=== PATIENT | male | born 1950 | race Caucasian/White ===

== ENCOUNTER 2016-12-05 10:41 | Outpatient (CLI) | payer OTHER | END 2016-12-05 23:00 | LOC: LAB SRH 10:41 | DX: Z51.81 Encounter for therapeutic drug level monitoring (principal); Z79.01 Long term (current) use of anticoagulants | CPT/HCPCS: 90074; 95059 ==

== ENCOUNTER 2016-12-05 16:40 | Emergency (ER) | payer OTHER ==
--- NOTE | 2016-12-05 21:30 | ED CLINICAL REPORT ---
Clinical Report - Physicians/Mid Levels [facility] [address] [place] [address] 12/05/2016 16:41 Patient: EUGENE BARR Arrived- By private vehicle. Historian- patient. HISTORY OF PRESENT ILLNESS Chief Complaint: Vomiting dark-colored material. This started today and has been moderate. (called his clinic and told them to go straight to the emergency department). Is still present but is improving. It was abrupt in onset and has been intermittent but is not gone now. The patient has not had dark stools, rectal bleeding or pain or hard stools. He has had constipation, nausea and vomiting. No diarrhea or abdominal pain. (reports no abdominal pain. Reports being constipated for the past 2 days. Patient has a history of metastatic cancer. reports no numbness or dizziness or weakness. Patient personal history of GI bleed.). Similar symptoms previously: None. Recent medical care: Not recently seen/assessed. REVIEW OF SYSTEMS No dizziness, fainting episodes, weakness or fever. All systems otherwise negative, except as recorded above. PAST HISTORY See nurses notes. Medications: Lovenox Subcutaneous 80 mg, 2x a day. Acetaminophen Oral 1,000 mg, 2x a day. MiraLax Oral. Pembrolizumab Intravenous, q 3 weeks. Senna Lax Oral. Allergies: No Known Drug Allergy. SOCIAL HISTORY Never smoker. No alcohol use or drug use. No recent travel. Is a local resident. ADDITIONAL NOTES The nursing notes have been reviewed. PHYSICAL EXAM Vital Signs: 12/05/2016 17:05 BP: 107/80. HR: 111. RR: 16. O2 saturation: 100%. Temp: 98 F. Pain level now: 3/10. Blood pressure normal. Oxygen saturation normal. Appearance: Alert. Oriented X3. No acute distress. Eyes: Pupils equal, round and reactive to light. Eyes normal inspection. ENT: Ears normal. Nose normal. Pharynx normal. (Stigmata of cancer With treatment of the oropharynx/neck.). Neck: Normal inspection. Neck supple. No meningeal signs or JVD. CVS: Normal heart rate and rhythm. Heart sounds normal. Pulses normal. Respiratory: No respiratory distress. Breath sounds normal. No rales, rhonchi, wheezes or prolonged expiration. Abdomen: Soft and nontender. Bowel sounds normal. No mass. Back: Normal inspection. Rectal: Heme-positive stool. One slight on the card is noted to have a small area that is heme positive. Other area of the card is negative. Appears to be coming from small area of mucus. Otherwise negative. (POC test reference range: negative). Rectal exam nontender. Stool color normal. Stool not melenic. Skin: Skin warm and dry. Normal skin color. No rash. Normal skin turgor. Extremities: Extremities exhibit normal ROM. No lower extremity edema. Neuro: Disoriented. Motor deficit noted. Sensory deficit noted. LABS, X-RAYS, AND EKG Laboratory Tests: CBC w Diff: (CHRIS: 12/05/2016 18:30) ( MsgRcvd 12/05/2016 18:56) Final results Test Result Flag Units (Reference) WHITE BLOOD COUNT 9.8 K/uL (4.5-11.5) RED BLOOD COUNT 3.71 L M/uL (4.50-5.90) HEMOGLOBIN 10.9 L gm/dL (13.5-17.5) HEMATOCRIT 33.7 L % (41.0-53.0) MEAN CELL VOLUME 91 fL (80-100) MEAN CORPUSCULAR HGB 29 pg (26-34) MEAN CORPUSCULAR HGB CONC 32 g/dL (31-37) RED CELL DISTRIBUTION WIDTH 15.4 H % (11.6-14.8) PLATELET COUNT 387 K/uL (150-400) NEUTROPHIL % 88.7 H % (50-75) LYMPH % 3.6 L % (25-40) MONO % 6.4 % (3-14) EOSINOPHIL % 1.2 % (0-4) BASOPHIL % 0.1 % (0-2) PT with INR: (CHRIS: 12/05/2016 19:00) ( OhgRcvd 12/05/2016 19:14) Final results Test Result Flag Units (Reference) INR 1.6 H (0.8-1.2) Low Intensity Therapy: INR 1.5-2.0 PT range 18.5-23.1Mod.Intensity Therapy: INR 2.0-3.0 PT range 23.1-31.5High Intensity Therapy: INR 2.5-3.5 PT range 27.4-35.5High Intensity Therapy 2: INR 3.0-4.0 PT range 31.5-39.3 APTT 53 H SECONDS (24-34) CMP: (CHRIS: 12/05/2016 19:00) ( MsgRcvd 12/05/2016 19:24) Final results Test Result Flag Units (Reference) GLUCOSE 106 mg/dL (70-110) BUN 18 mg/dL (7-18) CREATININE 0.8 mg/dL (0.6-1.3) Estimated GFR >60 mL/min Estimated GFR- >60 mL/min Note: Persistent reduction over 3 months in eGFR<60 mL/min/1.73 m2 defines CKD. Patients with eGFR values>=60 mL/min/1.73 m2 may also have CKD if evidence ofpersistent proteinuria. Additional information may be foundat www.kidney.org. SODIUM 136 mmol/L (136-145) POTASSIUM 4.0 mmol/L (3.5-5.1) CHLORIDE 98 mmol/L (98-107) CARBON DIOXIDE 31 mmol/L (21-32) CALCIUM 8.8 mg/dL (8.5-10.1) TOTAL PROTEIN 5.4 L g/dL (6.4-8.2) ALBUMIN 1.7 L g/dL (3.3-5.0) BILIRUBIN, TOTAL 0.5 mg/dL (0.0-1.0) ALKALINE PHOSPHATASE 114 U/L (46-116) AST (SGOT) 17 U/L (15-37) ALT (SGPT) 18 U/L (12-78) Type & Rh: (CHRIS: 12/05/2016 19:00) ( MsgRcvd 12/05/2016 19:12) Final results Test Result Flag Units (Reference) PATIENT BLOOD TYPE O Positive . PROGRESS AND PROCEDURES Course of Care: The patient is a pleasant cooperative 66-year-old male with complex past medical history who is known to me on his prior visits to the emergency department fora unrelated problem who presents for evaluation of dark colored vomit. on further questioning, patient has had grape juice. Patient states he does not feel that it was blood in the vomit and most likely foodstuffs however is in the emergency department because he had called his clinic and notified them of what had happened. On examination, patient is resting in bed in no acute distress. Patient reports having brown colored vomit. Patient does not describe them as coffee grounds. Patient will be hydrated for GI bleed. Medications provided. patient with episode of nausea and vomiting 2 days ago. Patient reports having no bowel movements Patient reports being told to get an enema at home. Has not been able to do this. Patient will be evaluated for laboratory studies. Patient has a 1 square of the Hemoccult that is positive. Appears to be emanating from a small area of mucus on the card. Patient does not have any justus heme positive stool. Low clinical suspicion for acute massive GI bleed based on patient's history and examination. Patient's laboratory studies are otherwise unremarkable. Patient is a stable out a patient candidate Recommend patient follow up with primary care doctor and oncology clinic. Do not feel patient needs to be admitted at this time. Vital signs are unremarkable upon discharge. Abdomen continues to be soft and nontender. Disposition: Discharged. Condition: good. CLINICAL IMPRESSION Minor GI bleed. Acute epigastric abdominal pain. 12/05/2016 17:05 BP: 107/80. HR: 111. RR: 16. O2 saturation: 100%. Temp: 98 F. Pain level now: 3/10. Blood pressure normal. Oxygen saturation normal. Constipation INSTRUCTIONS Warnings: GENERAL WARNINGS: Return or contact your physician immediately if your condition worsens or changes unexpectedly, if not improving as expected, or if other problems arise. Specifically return if pain, vomiting, bleeding, breathing difficulty or fever. light headed, week, worsening symptoms or other concerns. Your Current Medications: CONTINUE TAKING THE FOLLOWING MEDICATIONS: Acetaminophen Oral : 1,000 mg 2x a day. Lovenox Subcutaneous : 80 mg 2x a day. MiraLax Oral. Pembrolizumab Intravenous : q 3 weeks. Senna Lax Oral. Prescription Medications: Miralax: take 1 measuring cupful supplied mixed in 8 ounces juice every day as needed for constipation. Dispense twenty-six (26) ounce bottle. No refills. Substitution is permissible. Protonix 20 mg tablets: take 1 tablet orally every 12 hours for 1 week. Dispense fourteen (14). No refill. Substitution is permissible. OTC Medications: Magnesium Citrate (10-oz bottle) (available over the counter). Repeat after 4 hours if needed. (Disp 2 bottles) Colace 100 mg capsules (available over the counter): take 1 capsule orally as needed for constipation. No refill. Substitution is permissible. (disp 30 caps) Follow-up: Return to the emergency department as needed. Follow up with a specialist you oncologist. Reason for referral: contact for follow up instructions. Summary of care provided to patient via paper. Follow up with your doctor in three days. Reason for referral: recheck today's concerns. Summary of care provided to patient via paper. Follow up with doctor. Reason for referral: your oncologist for recheck of today's symptoms. Screening today revealed the patient's blood pressure to be in the normal range. The patient should follow up with a primary care provider for blood pressure management. Understanding of the discharge instructions verbalized by patient. Follow-up with: Alvino Vallecillo MD, Gastroenterology, , [address] [place] [address], [address], [facility] [address] Follow up in one week. Reason for referral: contact if you do not have a GI doctor and your doctor would like you to follow up with on based on today's visit. Summary of care provided to patient via paper. (Electronically signed by Jordan Pham Dr. 12/11/2016 17:43)
--- NOTE | 2016-12-05 21:31 | ED ORDER SUMMARY ---
..... Patient: EUGENE BARR OrderSheet [facility] VisitID: [id number] [place] [address] 66y, M Registration Date/Time: 12/05/2016 ORDER SHEET Weight: 61.2 kg (stated) Allergies: No Known Drug Allergy GENERAL ORDERS: CBC w Diff Urgent (18:12/05/2016 Elizabeth Lee) (18:34 NHouse ER Tech1) CMP Urgent (18:12/05/2016 Elizabeth Lee) (18:34 NHouse ER Tech1) PT with INR Urgent (18:12/05/2016 Elizabeth Lee) (18:34 COouse ER Tech1) PTT Urgent (18:12/05/2016 Elizabeth Lee) (18:34 NHouse ER Tech1) Type & Rh Urgent (18:12/05/2016 Elizabeth Lee) (18:34 NHouse ER Tech1) MEDICATION ORDERS: IV FLUIDS: IV NS : initial bolus 1000 mL (1000 mL/hr), then none - for X1 (NOW) (18:06 12/05/2016 Elizabeth Lee) (Ack 18:11 SRoberts R.N.) (18:41 SRoberts R.N.) Pepcid IV 20 mg/50mL (NOW) (18:12/05/2016 Elizabeth Lee) (Ack 18:11 SRoberts R.N.) (18:43 SRoberts R.N.) Protonix IVP 80mg 80 mg (Mix in NS 20ml over 4min) (18:12/05/2016 Elizabeth Lee) (Ack 18:11 SRoberts R.N.) (18:42 SRoberts R.N.) ORDER SHEET NOTES: [Electronically signed by Rebecca Lujan R.N. (21:47 12/05/2016)] [Electronically signed by Jordan Pham Dr. (17:43 12/11/2016)] [Electronically locked/signed by Rebecca Lujan R.N. (21:47 12/05/2016)]
--- NOTE | 2016-12-05 21:31 | ED NURSING NOTES ---
Clinical Report - Nurses [facility] [address] [place] [address] 12/05/2016 16:41 Patient: EUGENE BARR TRIAGE Triage time 17:07. Acuity: LEVEL 3. Chief Complaint: ABDOMINAL PAIN and VOMITING and VOMITING BLOOD. Alert. No acute distress. SEPSIS SCREEN: Sepsis Screen: negative. Negative (no infection suspected/documented). --17:19 Rebecca Lujan R.N. 17:05 12/05/16. BP: 107/80. HR: 111. RR: 16. O2 saturation: 100% on nasal cannula at 2 liters/minute. Temp: 98 F (axillary). Pain level now: 10. Additional comments: Home 02 . --17:19 Rebecca Lujan R.N. Weight: 61.2 kg stated. Height/Length: 63 inches Per Patient. BMI: 23.9. --17:10 Rebecca Lujan R.N. Medications Acetaminophen Oral 1,000 mg, 2x a day. MiraLax Oral. Pembrolizumab Intravenous, q 3 weeks. Senna Lax Oral. --17:21 Rebecca Lujan R.N. Lovenox Subcutaneous 80 mg, 2x a day. --17:22 Rebecca Lujan R.N. Medication/allergy information source: the patient. --17:19 Rebecca Lujan R.N. Allergies No Known Drug Allergy. --17:21 Rebecca Lujan R.N. History Arrived by private vehicle. Historian: patient. Accompanied by family. Primary physician (chc). Onset. (2 and 3 days ago had some vomiting with blood in it). He has had nausea, vomiting and abdominal pain. The pain is described as located in the RLQ and associated with nausea and vomiting. 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 PAST MEDICAL HX: Immunizations: status is unknown. SOCIAL HX: Smoker- current status unknown. No alcohol use or drug use. FALL RISK ASSESSMENT: Fall risk assessment completed. No fall risk identified. NUTRITIONAL RISK ASSESSMENT: Deficiencies were identified during the nutritional risk assessment. The patient has recently had a 50 percent decrease in intake and chewing difficulty. The patient is presently under care for identified nutritional deficiencies. --17:19 Rebecca Lujan R.N. PROBLEMS: COPD - Chronic Obstructive Pulmonary Disease. Metastatic squamous cell carcinoma. --17:12 Rebecca Lujan R.N. ADDITIONAL SURGERIES: 3 tumors removed from brain. Jaw surgery --bone removed and replaced with bone from lower leg. Lobectomy of lung. --17:12 Rebecca Lujan R.N. Interventions ID band on patient. To room. --17:19 Rebecca Lujan R.N. PHYSICAL ASSESSMENT To room via wheelchair. Patient gowned. GENERAL / NEURO / PSYCH: Alert. Oriented X 4. Appears anxious. HEENT: Mucous membranes are pink. RESPIRATORY: Respirations not labored. CVS: Capillary refill less than 2 seconds. GI / : Abdominal tenderness. SKIN: Skin is warm and dry. --17:19 Rebecca Lujan R.N. NURSING PROGRESS NOTES Two patient identifiers checked. Call light placed in reach. Side rails up x 2. Bed placed in lowest position. Brakes of bed on. Patient ready for evaluation. --17:20 Rebecca Lujan R.N. 18:12/05/2016 Site #1 started via IV in the right antecubital space with an 20g angiocath, with aseptic technique and good blood return; one attempt. Blood drawn: rainbow set. Labeled in the presence of the patient and sent to the lab. Saline lock flushed with saline. --18:41 Rebecca Lujan R.N. 18:12/05/2016 Started bag #1 1000 mL IV Fluids IV NS (Saline); at 1000 mL/hr over 1 hour(s) via site #1 via IV pump. Allergies verified and confirmed 5 rights. IV patency established. IV site checked: no pain, redness, or swelling. IV flushed thoroughly pre- and post-medication administration. --18:41 Rebecca Lujan R.N. 18:12/05/2016 PROTONIX (Pantoprazole Sodium) IVP 80 mg given over 2 minute(s) via site #1. Allergies verified and confirmed 5 rights. IV patency established. IV site checked: no pain, redness, or swelling. IV flushed thoroughly pre- and post-medication administration. IVP given by RN. --18:42 Rebecca Lujan R.N. 18:28 12/05/2016 Started 20 mg of Pepcid IVPB in bag #1 50 mL; at 100 mg/hr over 30 minute(s) via site #1 via IV pump. Allergies verified and confirmed 5 rights. IV patency established. IV site checked: no pain, redness, or swelling. IV flushed thoroughly pre- and post-medication administration. --18:43 Rebecca Lujan R.N. 19:00 12/05/2016 Pepcid IVPB Discontinued: bag #1 infused. Total amount infused: 50 mL. IV patency established. IV site checked: no pain, redness, or swelling. IV flushed thoroughly. --19:20 Rebecca Lujan R.N. 19:00 12/05/2016 IV Fluids IV NS Discontinued: bag #1 infused. Total amount infused: 1000 mL. IV patency established. IV site checked: no pain, redness, or swelling. IV flushed thoroughly. --19:21 Rebecca Lujan R.N. 21:35 12/05/2016 Site #1 removed upon discharge. Catheter intact. Bandaid applied. --21:35 Rebecca Lujan R.N. DISPOSITION / DISCHARGE Condition at departure: improved. No learning barriers present. Discharge instructions provided and reviewed with the patient and spouse. Reviewed medication(s) side effects, precautions, dosing and course information. Prescription(s) given to the patient. Patient and spouse verbalized understanding. Written instructions provided in Frisian. The patient was discharged home and accompanied by spouse. He left the Emergency Department ambulatory and via private vehicle. Spouse driving. Medication list reviewed and validated. --21:46 Rebecca Lujan R.N. 21:37 12/05/16. BP: 116/67. HR: 99. RR: 20. O2 saturation: 100% on nasal cannula at 2 liters/minute. Temp: 98.7 F (axillary). 20:20 12/05/16. BP: 113/69. HR: 96. RR: 18. O2 saturation: 100% on nasal cannula at 2 liters/minute. 19:26 12/05/16. BP: 117/70. HR: 90. RR: 18. O2 saturation: 99% on nasal cannula at 2 liters/minute. 18:30 12/05/16. BP: 116/73. HR: 76. RR: 16. O2 saturation: 100% on nasal cannula at 2 liters/minute. 17:05 12/05/16. BP: 107/80. HR: 111. RR: 16. O2 saturation: 100% on nasal cannula at 2 liters/minute. Temp: 98 F (axillary). Pain level now: 02/08. Additional comments: Home 02 . --21:46 Rebecca Lujan R.N. Locked/Released at 12/05/2016 21:47 by Rebecca Lujan R.N.
--- NOTE | 2016-12-05 21:31 | ED ORDER SUMMARY ---
..... Patient: EUGENE BARR OrderSheet [facility] VisitID: [id number] [place] [address] 66y, M Registration Date/Time: 12/05/2016 ORDER SHEET Weight: 61.2 kg (stated) Allergies: No Known Drug Allergy GENERAL ORDERS: CBC w Diff Urgent (18:12/05/2016 Elizabeth Lee) (18:34 NHouse ER Tech1) CMP Urgent (18:12/05/2016 Elizabeth Lee) (18:34 NHouse ER Tech1) PT with INR Urgent (18:12/05/2016 Elizabeth Lee) (18:34 NVouse ER Tech1) PTT Urgent (18:12/05/2016 Elizabeth Lee) (18:34 NHouse ER Tech1) Type & Rh Urgent (18:12/05/2016 Elizabeth Lee) (18:34 NHouse ER Tech1) MEDICATION ORDERS: IV FLUIDS: IV NS : initial bolus 1000 mL (1000 mL/hr), then none - for X1 (NOW) (18:06 12/05/2016 Elizabeth Lee) (Ack 18:11 SRoberts R.N.) (18:41 SRoberts R.N.) Pepcid IV 20 mg/50mL (NOW) (18:12/05/2016 Elizabeth Lee) (Ack 18:11 SRoberts R.N.) (18:43 SRoberts R.N.) Protonix IVP 80mg 80 mg (Mix in NS 20ml over 4min) (18:12/05/2016 Elizabeth Lee) (Ack 18:11 SRoberts R.N.) (18:42 SRoberts R.N.) ORDER SHEET NOTES: [Electronically signed by Rebecca Lujan R.N. (21:47 12/05/2016)] [Electronically signed by Jordan Pham Dr. (17:43 12/11/2016)] [Electronically locked/signed by Rebecca Lujan R.N. (21:47 12/05/2016)]
--- NOTE | 2016-12-11 17:43 | ED MED RECONCILIATION SUMMARY ---
Patient: EUGENE BARR Medication Reconciliation Report [facility] VisitID: [id number] [place] [address] 66y, M Registration Date/Time: 12/05/2016 Weight: 61.2 kg Height/Length: 63 in. BMI: 23.9 ALLERGIES: No Known Drug Allergy The patient's Home Medications are listed below: CONTINUE TAKING THE FOLLOWING MEDICATIONS: Acetaminophen Oral 1,000 mg, 2x a day Lovenox Subcutaneous 80 mg, 2x a day MiraLax Oral Pembrolizumab Intravenous, q 3 weeks Senna Lax Oral The source(s) of the original Home Medication information: patient The following Medications were given to the patient in the Emergency Department: IV NS IV Fluids bolus 0, then 1000 mL/hr, administered: 12/05/2016 6:26:00 PM PROTONIX [IVP] IVP 80 mg, administered: 12/05/2016 6:26:00 PM Pepcid [IVPB] IVPB bolus 0, then 20 mg 100 mg/hr, administered: 12/05/2016 6:28:00 PM The following Medications were prescribed to the patient: Magnesium Citrate (10-oz bottle) (available over the counter). Repeat after 4 hours if needed.(Disp 2 bottles) -- Jordan Pham Dr. Miralax: take 1 measuring cupful supplied mixed in 8 ounces juice every day as needed for constipation. Dispense twenty-six (26) ounce bottle. No refills. Substitution is permissible. -- Jordan Pham Dr. Colace 100 mg capsules (available over the counter): take 1 capsule orally as needed for constipation. No refill. Substitution is permissible.(disp 30 caps) -- Jordan Pham Dr. Protonix 20 mg tablets: take 1 tablet orally every 12 hours for 1 week. Dispense fourteen (14). No refill. Substitution is permissible. -- Jordan Pham Dr.
--- NOTE | 2016-12-11 17:43 | ED MED RECONCILIATION SUMMARY ---
Patient: EUGENE BARR Medication Reconciliation Report [facility] VisitID: [id number] [place] [address] 66y, M Registration Date/Time: 12/05/2016 Weight: 61.2 kg Height/Length: 63 in. BMI: 23.9 ALLERGIES: No Known Drug Allergy The patient's Home Medications are listed below: CONTINUE TAKING THE FOLLOWING MEDICATIONS: Acetaminophen Oral 1,000 mg, 2x a day Lovenox Subcutaneous 80 mg, 2x a day MiraLax Oral Pembrolizumab Intravenous, q 3 weeks Senna Lax Oral The source(s) of the original Home Medication information: patient The following Medications were given to the patient in the Emergency Department: IV NS IV Fluids bolus 0, then 1000 mL/hr, administered: 12/05/2016 6:26:00 PM PROTONIX [IVP] IVP 80 mg, administered: 12/05/2016 6:26:00 PM Pepcid [IVPB] IVPB bolus 0, then 20 mg 100 mg/hr, administered: 12/05/2016 6:28:00 PM The following Medications were prescribed to the patient: Magnesium Citrate (10-oz bottle) (available over the counter). Repeat after 4 hours if needed.(Disp 2 bottles) -- Jordan Pham Dr. Miralax: take 1 measuring cupful supplied mixed in 8 ounces juice every day as needed for constipation. Dispense twenty-six (26) ounce bottle. No refills. Substitution is permissible. -- Jordan Pham Dr. Colace 100 mg capsules (available over the counter): take 1 capsule orally as needed for constipation. No refill. Substitution is permissible.(disp 30 caps) -- Jordan Pham Dr. Protonix 20 mg tablets: take 1 tablet orally every 12 hours for 1 week. Dispense fourteen (14). No refill. Substitution is permissible. -- Jordan Pham Dr.
--- NOTE | 2016-12-11 17:43 | ED MAR SUMMARY ---
..... Medication Administration Record [facility] [address] [place] [address] Patient: EUGENE BARR Visit ID: [id number] 66y, M Weight: 61.2 kg Height/Length: 63 in BMI: 23.9 ALLERGIES: No Known Drug Allergy Start 18:26 12/05/2016 Rebecca Lujan R.N., Stop 19:00 12/05/2016 Rebecca Lujan R.N. Medication Administered: IV NS (SALINE), Dose: IV Fluids over 1 hour(s), Rate: 1000 mL/hr, Dispensed: 1000 mL bag, Site: #1 right AC. Medication Ordered: IV NS : initial bolus 1000 mL (1000 mL/hr), then none - for X1 (NOW). Given 18:26 12/05/2016 Rebecca Lujan R.N. Medication Administered: PROTONIX [IVP] (PANTOPRAZOLE SODIUM), Dose: 80 mg IVP over 2 minute(s), Site: #1 right AC. Medication Ordered: Protonix IVP 80mg 80 mg (Mix in NS 20ml over 4min). Start 18:28 12/05/2016 Rebecca Lujan R.N., Stop 19:00 12/05/2016 Rebecca Lujan R.N. Medication Administered: PEPCID [IVPB], Dose: 20 mg IVPB over 30 minute(s), Rate: 100 mg/hr, Dispensed: 50 mL bag, Site: #1 right AC. Medication Ordered: Pepcid IV 20 mg/50mL (NOW).
--- NOTE | 2016-12-11 17:43 | ED MAR SUMMARY ---
..... Medication Administration Record [facility] [address] [place] [address] Patient: EUGENE BARR Visit ID: [id number] 66y, M Weight: 61.2 kg Height/Length: 63 in BMI: 23.9 ALLERGIES: No Known Drug Allergy Start 18:26 12/05/2016 Rebecca Lujan R.N., Stop 19:00 12/05/2016 Rebecca Lujan R.N. Medication Administered: IV NS (SALINE), Dose: IV Fluids over 1 hour(s), Rate: 1000 mL/hr, Dispensed: 1000 mL bag, Site: #1 right AC. Medication Ordered: IV NS : initial bolus 1000 mL (1000 mL/hr), then none - for X1 (NOW). Given 18:26 12/05/2016 Rebecca Lujan R.N. Medication Administered: PROTONIX [IVP] (PANTOPRAZOLE SODIUM), Dose: 80 mg IVP over 2 minute(s), Site: #1 right AC. Medication Ordered: Protonix IVP 80mg 80 mg (Mix in NS 20ml over 4min). Start 18:28 12/05/2016 Rebecca Lujan R.N., Stop 19:00 12/05/2016 Rebecca Lujan R.N. Medication Administered: PEPCID [IVPB], Dose: 20 mg IVPB over 30 minute(s), Rate: 100 mg/hr, Dispensed: 50 mL bag, Site: #1 right AC. Medication Ordered: Pepcid IV 20 mg/50mL (NOW).
--- NOTE | 2016-12-11 17:43 | ED DISCHARGE INSTRUCTIONS ---
Patient: EUGENE BARR General Instructions [facility] VisitID: [id number] [place] [address] 66y, M Registration Date/Time: 12/05/2016 Minor GI bleed. Acute epigastric abdominal pain. 12/05/2016 17:05 BP: 107/80. HR: 111. RR: 16. O2 saturation: 100%. Temp: 98 F. Pain level now: 10. Blood pressure normal. Oxygen saturation normal. Constipation INSTRUCTIONS Warnings: GENERAL WARNINGS: Return or contact your physician immediately if your condition worsens or changes unexpectedly, if not improving as expected, or if other problems arise. Specifically return if pain, vomiting, bleeding, breathing difficulty or fever. light headed, week, worsening symptoms or other concerns. Your Current Medications: CONTINUE TAKING THE FOLLOWING MEDICATIONS: Acetaminophen Oral : 1,000 mg 2x a day. Lovenox Subcutaneous : 80 mg 2x a day. MiraLax Oral. Pembrolizumab Intravenous : q 3 weeks. Senna Lax Oral. Prescription Medications: Miralax: take 1 measuring cupful supplied mixed in 8 ounces juice every day as needed for constipation. Dispense twenty-six (26) ounce bottle. No refills. Substitution is permissible. Protonix 20 mg tablets: take 1 tablet orally every 12 hours for 1 week. Dispense fourteen (14). No refill. Substitution is permissible. OTC Medications: Magnesium Citrate (10-oz bottle) (available over the counter). Repeat after 4 hours if needed. (Disp 2 bottles) Colace 100 mg capsules (available over the counter): take 1 capsule orally as needed for constipation. No refill. Substitution is permissible. (disp 30 caps) Follow-up: Return to the emergency department as needed. Follow up with a specialist you oncologist. Reason for referral: contact for follow up instructions. Summary of care provided to patient via paper. Follow up with your doctor in three days. Reason for referral: recheck today's concerns. Summary of care provided to patient via paper. Follow up with doctor. Reason for referral: your oncologist for recheck of today's symptoms. Screening today revealed the patient's blood pressure to be in the normal range. The patient should follow up with a primary care provider for blood pressure management. Understanding of the discharge instructions verbalized by patient. Follow-up with: Alvino Vallecillo MD, Gastroenterology, , [address] [place] [address], [address], [place], [id number] Follow up in one week. Reason for referral: contact if you do not have a GI doctor and your doctor would like you to follow up with on based on today's visit. Summary of care provided to patient via paper. ADDITIONAL INFORMATION GI Bleeding (Upper), Stable There are signs that you have bled from your upper intestinal tract (esophagus, stomach or upper intestine). This may be due to: Repeated vomiting which may cause a small tear in the lining of the esophagus, An ulcer in the stomach or duodenum (upper intestine) Severe gastritis (from use of alcohol, aspirin or anti-inflammatory drugs) Esophageal varices (enlarged veins in the esophagus) may also cause bleeding like this. Your exam today showed that you have not lost a large amount of blood and your condition is stable. Bleeding from the upper GI tract causes the stool to turn black. Home Care: 1) If your bleeding is due to an ulcer or gastritis, an acid-blocking medicine will help. Unless an acid juliette was prescribed (or if you cannot afford one that was prescribed), you may use [id number] drugs such as Pepcid AC (famotidine), Tagamet (cimetidine) or Zantac (ranitidine). These begin to work within a few hours. Prilosec OTC (omeprazole) is a new type of acid juliette which may be more effective. It takes up to four days for its full effect. You may get additional short-term relief by taking antacids (Mylanta or Maalox). It should be taken one hour after meals and at bedtime. Do not take Tagamet (cimetidine), Zantac (ranitidine) or Carafate (sucralfate) within one hour of an antacid. 2) Avoid factors which increase stomach acid. These include cigarettes, caffeine (coffee, tom, teas) and stress. 3) Avoid substances that irritate your stomach. These include aspirin and anti-inflammatory drugs (such as ibuprofen, Advil, Motrin, naproxen, Aleve, Naprosyn), alcohol and spicy foods. Prednisone and related prescription drugs can cause an ulcer. Discuss with your doctor if you are taking these. 4) Take any prescribed medicine as directed to promote healing. 5) If alcohol is a possible cause of your GI bleeding, it is urgent that you talk with your doctor about ways to help you quit. Follow Up with your doctor as advised. Get Prompt Medical Attention if any of the following occur: -- Stomach pain worsens -- Pain appears, worsens or spreads to the neck, back, shoulder or arm -- You vomit blood (red or black color) -- You feel weak or dizzy, or you faint -- You have fever or abdominal swelling -- Red blood in the stool Abdominal Pain,Uncertain Cause [Male] Based on your visit today, the exact cause of your abdominalpain is not clear. Your exam and tests do not indicate a dangerous cause at this time. However, the signs of a serious problem may take more time to appear. Although your evaluation was reassuring today, sometimes early in the course of many conditions, exam and lab tests can appear normal. Therefore, it is important for you to watch for any new symptoms or worsening of your condition. Causes It may not be obvious what caused your symptoms. Pay attention to things that do seem to make your symptoms worse or better and discuss this with your doctor when you follow up. Diagnosis The evaluation of abdominal pain in the emergency department may onlyrequire an exam by the doctor or it may include blood, urine or imaging studies, depending on many factors. Sometimes exams and tests can identify a cause but in many cases, a clear cause is not found. Further testing at follow up visits may help to suggest a clear diagnosis. Home Care Rest as much as possible until your next exam. Try to avoid any medications (unless otherwise directed by your doctor), foods, activities, or other factors that you may have contributed to your symptoms. Try to eat foods that you know that you have tolerated well in the past. Certain diets may be recommended for some conditions that cause abdominal pain. However, since the cause of your symptoms may not be clear, discuss your diet more with your primary care provider or specialist for further recommendations. Eating several small meals per day as opposed to 2 or 3 larger meals may help. Monitor closely for anything that may make your symptoms worse or better. Pay close attention to symptoms below that may indicate worsening of your condition. Follow Up and Precautions See your doctoras instructed or sooneror if your symptoms are not improving.In some cases, you may need more testing. When to Seek Medical Attention Contact your doctor or see medical attention ifany of the following occur: Pain is becoming worse You are unable to take your medications due to excessive vomiting Swelling of the abdomen Fever of 100.4F (38C) or higher, or as directed by your health care provider Blood in vomit or bowel movements (dark red or black color) Jaundice (yellow color of eyes and skin) New onset of weakness, dizziness or fainting New onset of chest, arm, back, neck or jaw pain Constipation (Adult) Constipation is bowel movements that are less frequent than usual. Stools often become very hard and difficult to pass. This may lead to abdominal pain and bloating. It may also cause painful bowel movements. Constipation may be due to a diet thats low in fiber. Some medications, especially pain medications, can also cause it. Constipation may be treated with enemas, suppositories, laxatives or stool softeners. Your doctor will advise you which will work best for you. Follow the advice below to help avoid this problem in the future. Home Care Medication: Take any medicines as directed. Some laxatives are safe only for occasional use. Others can be taken on a regular basis. Talk to your doctor or pharmacist if you have questions. General Care: Prescription pain medications can cause constipation. If you are prescribed pain medications, ask the doctor whether you should also take a stool softener. A diet high in fiber with plenty of fluids helps to maintain regular, soft bowel movements. The following foods are good sources of dietary fiber: Cereals and breads: Whole grain cereal with bran, oatmeal, rolled oats, whole grain breads Fruits: All fruits (fresh and dried), raisins, prunes, apricots, berries, figs Vegetables: Any fresh vegetables, especially peas, broccoli, brussels sprouts, winter squash, green beans, cauliflower, giles beans, carrots Other: Popcorn, brown rice Drink plenty of water when you increase the amount of fiber you eat. Follow Up with your doctor or return to this facility if symptoms do not improve in the next few days. You may require further tests or a referral to a specialist. Get Prompt Medical Attention if any of the following occur: Fever over 100.4F (38C) Failure to resume normal bowel movements Increasing abdominal or back pain Nausea or vomiting Abdominal swelling Blood in the stool Weakness, dizziness or fainting Unexpected vaginal bleeding Pantoprazole Sodium Gastro-resistant tablet What is this medicine? PANTOPRAZOLE (bermeo TOE pra zole) prevents the production of acid in the stomach. It is used to treat gastroesophageal reflux disease (GERD), inflammation of the esophagus, and Mariana-Duenas syndrome. How should I use this medicine? Take this medicine by mouth. Swallow the tablets whole with a drink of water. Follow the directions on the prescription label. Do not crush, break, or chew. Take your medicine at regular intervals. Do not take your medicine more often than directed. Talk to your photographic colorist regarding the use of this medicine in children. While this drug may be prescribed for children as young as 5 years for selected conditions, precautions do apply. What side effects may I notice from receiving this medicine? Side effects that you should report to your doctor or health ocular care technician as soon as possible: allergic reactions like skin rash, itching or hives, swelling of the face, lips, or tongue bone, muscle or joint pain breathing problems chest pain or chest tightness dark yellow or brown urine dizziness fast, irregular heartbeat feeling faint or lightheaded fever or sore throat muscle spasm palpitations redness, blistering, peeling or loosening of the skin, including inside the mouth seizures tremors unusual bleeding or bruising unusually weak or tired yellowing of the eyes or skin Side effects that usually do not require medical attention (Report these to your doctor or health ocular care technician if they continue or are bothersome.): constipation diarrhea dry mouth headache nausea What may interact with this medicine? Do not take this medicine with any of the following medications: atazanavir nelfinavir This medicine may also interact with the following medications: ampicillin delavirdine digoxin diuretics iron salts medicines for fungal infections like ketoconazole, itraconazole and voriconazole warfarin What if I miss a dose? If you miss a dose, take it as soon as you can. If it is almost time for your next dose, take only that dose. Do not take double or extra doses. Where should I keep my medicine? Keep out of the reach of children. Store at room temperature between 15 and 30 degrees C (59 and 86 degrees F). Protect from light and moisture. Throw away any unused medicine after the expiration date. What should I tell my health care provider before I take this medicine? They need to know if you have any of these conditions: liver disease low levels of magnesium in the blood an unusual or allergic reaction to omeprazole, lansoprazole, pantoprazole, rabeprazole, other medicines, foods, dyes, or preservatives or trying to get breast-feeding What should I watch for while using this medicine? It can take several days before your stomach pain gets better. Check with your doctor or health ocular care technician if your condition does not start to get better, or if it gets worse. You may need blood work done while you are taking this medicine. Docusate Sodium Oral tablet What is this medicine? DOCUSATE (doc CUE sayt) is stool softener. It helps prevent constipation and straining or discomfort associated with hard or dry stools. How should I use this medicine? Take this medicine by mouth with a glass of water. Follow the directions on the label. Take your doses at regular intervals. Do not take your medicine more often than directed. Talk to your photographic colorist regarding the use of this medicine in children. While this medicine may be prescribed for children as young as 2 years for selected conditions, precautions do apply. What side effects may I notice from receiving this medicine? Side effects that you should report to your doctor or health ocular care technician as soon as possible: allergic reactions like skin rash, itching or hives, swelling of the face, lips, or tongue Side effects that usually do not require medical attention (report to your doctor or health ocular care technician if they continue or are bothersome): diarrhea stomach cramps throat irritation What may interact with this medicine? mineral oil What if I miss a dose? If you miss a dose, take it as soon as you can. If it is almost time for your next dose, take only that dose. Do not take double or extra doses. Where should I keep my medicine? Keep out of the reach of children. Store at room temperature between 15 and 30 degrees C (59 and 86 degrees F). Throw away any unused medicine after the expiration date. What should I tell my health care provider before I take this medicine? They need to know if you have any of these conditions: nausea or vomiting severe constipation stomach pain sudden change in bowel habit lasting more than 2 weeks an unusual or allergic reaction to docusate, other medicines, foods, dyes, or preservatives or trying to get breast-feeding What should I watch for while using this medicine? Do not use for more than one week without advice from your doctor or health ocular care technician. If your constipation returns, check with your doctor or health ocular care technician. Drink plenty of water while taking this medicine. Drinking water helps decrease constipation. Stop using this medicine and contact your doctor or health ocular care technician if you experience any rectal bleeding or do not have a bowel movement after use. These could be signs of a more serious condition. You have been given the following additional information: GI Bleed, Upper (Stable) Abdominal Pain, Unknown Cause, (Male) Constipation (Adult) Pantoprazole Sodium Gastro-resistant tablet Docusate Sodium Oral tablet (Electronically signed by Jordan Pham Dr. 12/11/2016 17:43)
--- NOTE | 2016-12-11 17:43 | ED DISCHARGE INSTRUCTIONS ---
Patient: EUGENE BARR General Instructions [facility] VisitID: [id number] [place] [address] 66y, M Registration Date/Time: 12/05/2016 Minor GI bleed. Acute epigastric abdominal pain. 12/05/2016 17:05 BP: 107/80. HR: 111. RR: 16. O2 saturation: 100%. Temp: 98 F. Pain level now: 10. Blood pressure normal. Oxygen saturation normal. Constipation INSTRUCTIONS Warnings: GENERAL WARNINGS: Return or contact your physician immediately if your condition worsens or changes unexpectedly, if not improving as expected, or if other problems arise. Specifically return if pain, vomiting, bleeding, breathing difficulty or fever. light headed, week, worsening symptoms or other concerns. Your Current Medications: CONTINUE TAKING THE FOLLOWING MEDICATIONS: Acetaminophen Oral : 1,000 mg 2x a day. Lovenox Subcutaneous : 80 mg 2x a day. MiraLax Oral. Pembrolizumab Intravenous : q 3 weeks. Senna Lax Oral. Prescription Medications: Miralax: take 1 measuring cupful supplied mixed in 8 ounces juice every day as needed for constipation. Dispense twenty-six (26) ounce bottle. No refills. Substitution is permissible. Protonix 20 mg tablets: take 1 tablet orally every 12 hours for 1 week. Dispense fourteen (14). No refill. Substitution is permissible. OTC Medications: Magnesium Citrate (10-oz bottle) (available over the counter). Repeat after 4 hours if needed. (Disp 2 bottles) Colace 100 mg capsules (available over the counter): take 1 capsule orally as needed for constipation. No refill. Substitution is permissible. (disp 30 caps) Follow-up: Return to the emergency department as needed. Follow up with a specialist you oncologist. Reason for referral: contact for follow up instructions. Summary of care provided to patient via paper. Follow up with your doctor in three days. Reason for referral: recheck today's concerns. Summary of care provided to patient via paper. Follow up with doctor. Reason for referral: your oncologist for recheck of today's symptoms. Screening today revealed the patient's blood pressure to be in the normal range. The patient should follow up with a primary care provider for blood pressure management. Understanding of the discharge instructions verbalized by patient. Follow-up with: Alvino Vallecillo MD, Gastroenterology, , [address] [place] [address], [address], [place], [id number] Follow up in one week. Reason for referral: contact if you do not have a GI doctor and your doctor would like you to follow up with on based on today's visit. Summary of care provided to patient via paper. ADDITIONAL INFORMATION GI Bleeding (Upper), Stable There are signs that you have bled from your upper intestinal tract (esophagus, stomach or upper intestine). This may be due to: Repeated vomiting which may cause a small tear in the lining of the esophagus, An ulcer in the stomach or duodenum (upper intestine) Severe gastritis (from use of alcohol, aspirin or anti-inflammatory drugs) Esophageal varices (enlarged veins in the esophagus) may also cause bleeding like this. Your exam today showed that you have not lost a large amount of blood and your condition is stable. Bleeding from the upper GI tract causes the stool to turn black. Home Care: 1) If your bleeding is due to an ulcer or gastritis, an acid-blocking medicine will help. Unless an acid juliette was prescribed (or if you cannot afford one that was prescribed), you may use [id number] drugs such as Pepcid AC (famotidine), Tagamet (cimetidine) or Zantac (ranitidine). These begin to work within a few hours. Prilosec OTC (omeprazole) is a new type of acid juliette which may be more effective. It takes up to four days for its full effect. You may get additional short-term relief by taking antacids (Mylanta or Maalox). It should be taken one hour after meals and at bedtime. Do not take Tagamet (cimetidine), Zantac (ranitidine) or Carafate (sucralfate) within one hour of an antacid. 2) Avoid factors which increase stomach acid. These include cigarettes, caffeine (coffee, tom, teas) and stress. 3) Avoid substances that irritate your stomach. These include aspirin and anti-inflammatory drugs (such as ibuprofen, Advil, Motrin, naproxen, Aleve, Naprosyn), alcohol and spicy foods. Prednisone and related prescription drugs can cause an ulcer. Discuss with your doctor if you are taking these. 4) Take any prescribed medicine as directed to promote healing. 5) If alcohol is a possible cause of your GI bleeding, it is urgent that you talk with your doctor about ways to help you quit. Follow Up with your doctor as advised. Get Prompt Medical Attention if any of the following occur: -- Stomach pain worsens -- Pain appears, worsens or spreads to the neck, back, shoulder or arm -- You vomit blood (red or black color) -- You feel weak or dizzy, or you faint -- You have fever or abdominal swelling -- Red blood in the stool Abdominal Pain,Uncertain Cause [Male] Based on your visit today, the exact cause of your abdominalpain is not clear. Your exam and tests do not indicate a dangerous cause at this time. However, the signs of a serious problem may take more time to appear. Although your evaluation was reassuring today, sometimes early in the course of many conditions, exam and lab tests can appear normal. Therefore, it is important for you to watch for any new symptoms or worsening of your condition. Causes It may not be obvious what caused your symptoms. Pay attention to things that do seem to make your symptoms worse or better and discuss this with your doctor when you follow up. Diagnosis The evaluation of abdominal pain in the emergency department may onlyrequire an exam by the doctor or it may include blood, urine or imaging studies, depending on many factors. Sometimes exams and tests can identify a cause but in many cases, a clear cause is not found. Further testing at follow up visits may help to suggest a clear diagnosis. Home Care Rest as much as possible until your next exam. Try to avoid any medications (unless otherwise directed by your doctor), foods, activities, or other factors that you may have contributed to your symptoms. Try to eat foods that you know that you have tolerated well in the past. Certain diets may be recommended for some conditions that cause abdominal pain. However, since the cause of your symptoms may not be clear, discuss your diet more with your primary care provider or specialist for further recommendations. Eating several small meals per day as opposed to 2 or 3 larger meals may help. Monitor closely for anything that may make your symptoms worse or better. Pay close attention to symptoms below that may indicate worsening of your condition. Follow Up and Precautions See your doctoras instructed or sooneror if your symptoms are not improving.In some cases, you may need more testing. When to Seek Medical Attention Contact your doctor or see medical attention ifany of the following occur: Pain is becoming worse You are unable to take your medications due to excessive vomiting Swelling of the abdomen Fever of 100.4F (38C) or higher, or as directed by your health care provider Blood in vomit or bowel movements (dark red or black color) Jaundice (yellow color of eyes and skin) New onset of weakness, dizziness or fainting New onset of chest, arm, back, neck or jaw pain Constipation (Adult) Constipation is bowel movements that are less frequent than usual. Stools often become very hard and difficult to pass. This may lead to abdominal pain and bloating. It may also cause painful bowel movements. Constipation may be due to a diet thats low in fiber. Some medications, especially pain medications, can also cause it. Constipation may be treated with enemas, suppositories, laxatives or stool softeners. Your doctor will advise you which will work best for you. Follow the advice below to help avoid this problem in the future. Home Care Medication: Take any medicines as directed. Some laxatives are safe only for occasional use. Others can be taken on a regular basis. Talk to your doctor or pharmacist if you have questions. General Care: Prescription pain medications can cause constipation. If you are prescribed pain medications, ask the doctor whether you should also take a stool softener. A diet high in fiber with plenty of fluids helps to maintain regular, soft bowel movements. The following foods are good sources of dietary fiber: Cereals and breads: Whole grain cereal with bran, oatmeal, rolled oats, whole grain breads Fruits: All fruits (fresh and dried), raisins, prunes, apricots, berries, figs Vegetables: Any fresh vegetables, especially peas, broccoli, brussels sprouts, winter squash, green beans, cauliflower, giles beans, carrots Other: Popcorn, brown rice Drink plenty of water when you increase the amount of fiber you eat. Follow Up with your doctor or return to this facility if symptoms do not improve in the next few days. You may require further tests or a referral to a specialist. Get Prompt Medical Attention if any of the following occur: Fever over 100.4F (38C) Failure to resume normal bowel movements Increasing abdominal or back pain Nausea or vomiting Abdominal swelling Blood in the stool Weakness, dizziness or fainting Unexpected vaginal bleeding Pantoprazole Sodium Gastro-resistant tablet What is this medicine? PANTOPRAZOLE (bermeo TOE pra zole) prevents the production of acid in the stomach. It is used to treat gastroesophageal reflux disease (GERD), inflammation of the esophagus, and Mariana-Duenas syndrome. How should I use this medicine? Take this medicine by mouth. Swallow the tablets whole with a drink of water. Follow the directions on the prescription label. Do not crush, break, or chew. Take your medicine at regular intervals. Do not take your medicine more often than directed. Talk to your kitchen and counter worker regarding the use of this medicine in children. While this drug may be prescribed for children as young as 5 years for selected conditions, precautions do apply. What side effects may I notice from receiving this medicine? Side effects that you should report to your doctor or health career placement specialist as soon as possible: allergic reactions like skin rash, itching or hives, swelling of the face, lips, or tongue bone, muscle or joint pain breathing problems chest pain or chest tightness dark yellow or brown urine dizziness fast, irregular heartbeat feeling faint or lightheaded fever or sore throat muscle spasm palpitations redness, blistering, peeling or loosening of the skin, including inside the mouth seizures tremors unusual bleeding or bruising unusually weak or tired yellowing of the eyes or skin Side effects that usually do not require medical attention (Report these to your doctor or health career placement specialist if they continue or are bothersome.): constipation diarrhea dry mouth headache nausea What may interact with this medicine? Do not take this medicine with any of the following medications: atazanavir nelfinavir This medicine may also interact with the following medications: ampicillin delavirdine digoxin diuretics iron salts medicines for fungal infections like ketoconazole, itraconazole and voriconazole warfarin What if I miss a dose? If you miss a dose, take it as soon as you can. If it is almost time for your next dose, take only that dose. Do not take double or extra doses. Where should I keep my medicine? Keep out of the reach of children. Store at room temperature between 15 and 30 degrees C (59 and 86 degrees F). Protect from light and moisture. Throw away any unused medicine after the expiration date. What should I tell my health care provider before I take this medicine? They need to know if you have any of these conditions: liver disease low levels of magnesium in the blood an unusual or allergic reaction to omeprazole, lansoprazole, pantoprazole, rabeprazole, other medicines, foods, dyes, or preservatives or trying to get breast-feeding What should I watch for while using this medicine? It can take several days before your stomach pain gets better. Check with your doctor or health career placement specialist if your condition does not start to get better, or if it gets worse. You may need blood work done while you are taking this medicine. Docusate Sodium Oral tablet What is this medicine? DOCUSATE (doc CUE sayt) is stool softener. It helps prevent constipation and straining or discomfort associated with hard or dry stools. How should I use this medicine? Take this medicine by mouth with a glass of water. Follow the directions on the label. Take your doses at regular intervals. Do not take your medicine more often than directed. Talk to your kitchen and counter worker regarding the use of this medicine in children. While this medicine may be prescribed for children as young as 2 years for selected conditions, precautions do apply. What side effects may I notice from receiving this medicine? Side effects that you should report to your doctor or health career placement specialist as soon as possible: allergic reactions like skin rash, itching or hives, swelling of the face, lips, or tongue Side effects that usually do not require medical attention (report to your doctor or health career placement specialist if they continue or are bothersome): diarrhea stomach cramps throat irritation What may interact with this medicine? mineral oil What if I miss a dose? If you miss a dose, take it as soon as you can. If it is almost time for your next dose, take only that dose. Do not take double or extra doses. Where should I keep my medicine? Keep out of the reach of children. Store at room temperature between 15 and 30 degrees C (59 and 86 degrees F). Throw away any unused medicine after the expiration date. What should I tell my health care provider before I take this medicine? They need to know if you have any of these conditions: nausea or vomiting severe constipation stomach pain sudden change in bowel habit lasting more than 2 weeks an unusual or allergic reaction to docusate, other medicines, foods, dyes, or preservatives or trying to get breast-feeding What should I watch for while using this medicine? Do not use for more than one week without advice from your doctor or health career placement specialist. If your constipation returns, check with your doctor or health career placement specialist. Drink plenty of water while taking this medicine. Drinking water helps decrease constipation. Stop using this medicine and contact your doctor or health career placement specialist if you experience any rectal bleeding or do not have a bowel movement after use. These could be signs of a more serious condition. You have been given the following additional information: GI Bleed, Upper (Stable) Abdominal Pain, Unknown Cause, (Male) Constipation (Adult) Pantoprazole Sodium Gastro-resistant tablet Docusate Sodium Oral tablet (Electronically signed by Jordan Pham Dr. 12/11/2016 17:43)
== END 2016-12-05 21:45 | disposition home or self-care (01) ==
LOC: ED SRH 16:40
DX: K92.2 Gastrointestinal hemorrhage, unspecified (principal); K59.00 Constipation, unspecified; R10.13 Epigastric pain; J44.9 Chronic obstructive pulmonary disease, unspecified; Z79.01 Long term (current) use of anticoagulants
CPT/HCPCS: 90001; 90074; 90100; 90155; 94001; 94060; 95059

== ENCOUNTER 2016-12-14 10:19 | Outpatient (CLI) | payer OTHER | END 2016-12-14 23:00 | LOC: LAB SRH 10:19 | DX: Z79.01 Long term (current) use of anticoagulants (principal) | CPT/HCPCS: 90074; 95059 ==

== ENCOUNTER 2017-01-03 09:25 | Outpatient (CLI) | payer OTHER | END 2017-01-03 23:00 | LOC: LAB SRH 09:25 | DX: Z79.01 Long term (current) use of anticoagulants (principal) | CPT/HCPCS: 90074; 95059 ==

== ENCOUNTER 2017-01-14 10:13 | Outpatient (CLI) | payer OTHER ==
[2017-01-14] MEDS ORDERED: ACETAMINOPHEN500 MG PO (20:24)
[2017-01-14] MEDS ORDERED: MIRALAX EQUIVAL17 GM PO (20:25)
[2017-01-14] MEDS ORDERED: IBUPROFEN600 MG PO (20:25)
[2017-01-14] MEDS ORDERED: LOVENOX80 MG/0.8 SC (20:25)
[2017-01-14] MEDS ORDERED: KEYTRUDA100 MG/4 M IV (20:26)
[2017-01-14] MEDS ORDERED: SENOKOT8.6 MG PO (20:26)
== END 2017-01-14 23:00 ==
LOC: LAB SRH 10:13
DX: Z79.01 Long term (current) use of anticoagulants (principal)
CPT/HCPCS: 90074; 95059

== ENCOUNTER 2017-01-14 15:27 | Observation (INO) | payer OTHER ==
[2017-01-14] VITALS (7 sets, daily range): BP systolic 84–98; BP diastolic 39–54
[~2017-01-14] VITALS: Ht 172.7 cm; Wt 67.0 kg
--- NOTE | 2017-01-14 16:20 | DIAGNOSTIC IMAGING REPORT ---
PROCEDURE: XR CHEST 1 VIEW INDICATION: SHORTNESS OF BREATH TECHNIQUE: Portable AP view 03:51 p.m. COMPARISON: Chest x-ray and chest CT dated 11/02/2016 FINDINGS: Multiple enlarging metastatic nodules throughout both lungs. New right lower lobe infiltrate. Decrease in the hilar mass and mediastinal shift. IMPRESSION: 1. Right lower lobe infiltrate. 2. Multiple enlarging lung mets
--- NOTE | 2017-01-14 16:33 | ED NURSING NOTES ---
Clinical Report - Nurses [facility] [address] [place] [address] 01/14/2017 15:27 Patient: EUGENE BARR TRIAGE Triage time 15:34 Jan 14 2017. Acuity: LEVEL 3. Chief Complaint: (Pt had blood tests drawn earlier and was told to come in for possible transfusion). 15:41 01/14/17. Alert. No acute distress. SEPSIS SCREEN: Sepsis Screen. Negative (no infection suspected/documented). HOLLIE COMA SCORE: [place] Coma Scale: 15- eyes open spontaneously (4); best verbal response- oriented x 4 (5); best motor response- obeys commands (6). --15:41 Mary Jo Horton 15:38 01/14/17. BP: 87/56. HR: 112. RR: 16. O2 saturation: 100% on nasal cannula at 2 liters/minute. Temp: 97.7 F. Pain level now 4/10. Additional comments: Patient normally on 2 LPM. --15:41 Mary Jo Horton. Weight: 68 kg stated. Height/Length: 70 inches Per Patient. BMI: 21.5. --15:38 Mary Jo Horton. Medications Acetaminophen Oral 1,000 mg, 2x a day. --15:36 Mary Jo Horton Ibuprofen Oral, PRN. --15:36 Mary Jo Horton Lovenox Subcutaneous 80 mg, 2x a day. MiraLax Oral. Pembrolizumab Intravenous, q 3 weeks. Senna Lax Oral. --15:37 Mary Jo Horton. Medication/allergy information source: the patient and patient's family. --15:41 Mary Jo Horton. Allergies No Known Drug Allergy. --15:37 Mary Jo Horton. History Arrived by private vehicle. Historian: patient. Accompanied by spouse. Primary physician (Jason). This started today. ( Pt has been feeling tired more often lately. Pt's cancer doctor called pt to come in for possible blood transfusion.). He has had weakness, a cough and difficulty breathing. 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 PAST MEDICAL HX: No history of diabetes mellitus, hypertension or heart disease. Immunizations: up-to-date and has received pneumonia vaccine; seasonal influenza. SOCIAL HX: Former smoker, end date 2011. No alcohol use or drug use. FALL RISK ASSESSMENT: Fall risk assessment completed. No fall risk identified. NUTRITIONAL RISK ASSESSMENT: The nutritional risk assessment revealed no deficiencies. FUNCTIONAL ASSESSMENT: Functional assessment: no impairments noted. LEARNING NEEDS ASSESSMENT: The learning needs assessment revealed no barriers. SKIN INTEGRITY ASSESSMENT: Skin integrity risk assessment completed. No skin integrity risk identified. --15:41 Mary Jo Horton. PROBLEMS: Brain tumors. Lung Cancer. GI Bleeding. Constipation. Abdominal Pain. COPD - Chronic Obstructive Pulmonary Disease. Metastatic squamous cell carcinoma. --15:38 Mary Jo Horton. ADDITIONAL SURGERIES: 3 tumors removed from brain. Jaw surgery --bone removed and replaced with bone from lower leg. Lobectomy of lung. --15:38 Mary Jo Horton. Assessment The patient states feels the same. --15:41 Mary Jo Horton. Interventions ID band on patient. --15:41 Mary Jo Horton. PHYSICAL ASSESSMENT 15:53 01/14/17. To room via wheelchair. Patient gowned. GENERAL / NEURO / PSYCH: Alert. Oriented X 4. Appears in no acute distress. HEENT: Pupils equal, round and reactive to light. Mucous membranes are pink. RESPIRATORY: Respirations not labored. The patient can speak in full sentences. Chest nontender. CVS: Capillary refill less than 2 seconds. GI / : Abdomen nontender. SKIN: Skin intact. Skin is pale. Skin is warm and dry. Normal skin turgor. --15:53 Mary Jo Horton. NURSING PROGRESS NOTES 15:54 01/14/17. The plan of care for this patient has been created. property assessment monitor, pulse oximeter and NIBP monitor placed on patient; cardiac care nurse- Lead II and V5; monitor alarms on. Head of bed elevated. Reassurance given. Two patient identifiers checked. Call light placed in reach. Side rails up x 1. Bed placed in lowest position. Brakes of bed on. Patient ready for evaluation- chart flagged and ED physician and PA notified. --15:54 Mary Jo Horton 15:55 01/14/2017 Site #1 started via IV in the left antecubital space with an 20g angiocath, with aseptic technique and good blood return; one attempt. Blood drawn: rainbow set. Labeled in the presence of the patient and sent to the lab. Saline lock flushed with 10 mL saline. --15:55 Mary Jo Horton 16:02 01/14/2017 Started bag #1 1000 mL IV Fluids IV NS (Saline); at 1000 mL/hr over 30 minute(s) via site #1 via IV pump. Allergies verified and confirmed 5 rights. IV patency established. IV site checked: no pain, redness, or swelling. IV flushed thoroughly pre- and post-medication administration. --16:02 Mary Jo Horton EKG time: (16:14). EKG was performed by a tech and shown to the ED physician. --16:36 Joann Reich 16:48 01/14/17. BP: 87/55. HR: 98. RR: 21. O2 saturation: 100% on nasal cannula at 2 liters/minute. Pain level now: 5/10. --16:49 Mary Jo Horton 16:49 01/14/17. ( Pt given warm blankets.). --16:49 Mary Jo Horton 17:06 01/14/17. Care transferred and report given (Johnny Sánchez, RN). --17:06 Mary Jo Horton 18:30 01/14/2017 IV Fluids IV NS Bag Change: infused. Total amount infused: 1000. STARTED bag #2 (50 mL) at 250 mL/hr via IV pump. Confirmed 5 rights. IV patency established. IV site checked: no pain, redness, or swelling. IV flushed thoroughly. --18:45 Johnny Porras, R.N. 19:00 01/14/2017 Site #[address] upon admission; patent, no pain and no signs of infection or infiltration. Good blood return present. Flushed with 10 mL saline; flushes easily. --19:55 Johnny Porras, R.N. 19:00 01/14/2017 IV Fluids IV NS Continued: upon admission at the rate of 250 mL/hr. 875 mL remaining bag #2. IV patency established. IV site checked: no pain, redness, or swelling. IV flushed thoroughly. --19:52 Johnny Porras R.N. 18:55. Patient ID band checked for patient name, birthdate and medical record number: patient confirmed. Instructions provided to collect clean catch urine and patient verbalized understanding. Clean catch urine collected with return of yellow-colored clear urine; odor is normal; sample sent to lab for urinalysis and culture. Specimen labeled in the presence of the patient. --20:00 Johnny Porras R.N. DISPOSITION / DISCHARGE 18:45 01/14/17. BP: 92/57. HR: 95. RR: 18. O2 saturation: 100% on nasal cannula at 3 liters/minute. Temp: 98.5 F (axillary). Pain level now: 01/11. --19:47 Johnny Porras R.N. Departure time: 1899. --19:47 Johnny Porras R.N. 19:00. Transported via stretcher. Report was given to a nurse via a phone call. Report included patient's care, treatment, medications, reviewed medication reconcilliation, and condition (including any recent changes or anticipated changes). All questions were answered. Report was acknowledged. --19:51 Johnny Porras R.N. <<STRICKEN ENTRY-- 19:00. ( Admitted to the Hospital with Packed Cells Unit # 1 infusing and ~ 100mL injfused from that Unit and 150 mL LTC.). --19:58 Johnny Porras R.N. --END STRIKE>> Correction --19:58 Johnny Porras R.N. 1900. ( Admitted to the Hospital with Packed Cells Unit # 1 infusing and ~ 100mL infused from that Unit and 150 mL LTC.). --19:59 Johnny Porras R.N. Locked/Released at 01/14/2017 20:01 by Johnny Porras R.N.
--- NOTE | 2017-01-14 16:33 | ED CLINICAL REPORT ---
Clinical Report - Physicians/Mid Levels [facility] [address] [place] [address] 01/14/2017 15:27 Patient: EUGENE BARR Time Seen: 15:32. Arrived- By private vehicle. Historian- patient. HISTORY OF PRESENT ILLNESS Chief Complaint: DYSPNEA and WEAKNESS. This started several weeks ago and is still present. It was gradual in onset and has been waxing/waning. At its maximum, severity described as moderate. When seen in the E.D., severity described as moderate. Modifying factors- worsened by walking. Relieved by rest and oxygen. The patient has had weight loss, fatigue and generalized weakness. Similar symptoms previously: Recent medical care: The patient was seen recently at this facility and another facility in the emergency department and a clinic and hospitalized. REVIEW OF SYSTEMS No fever, sore throat, sinus drainage, nasal congestion or chest pain. No abdominal pain, nausea, vomiting, diarrhea or black stools. No bloody stools, difficulty with urination, skin rash, back pain or headache. No blackouts. The patient has had a cough. No change in baseline cough or sputum. It has been similar to previous symptoms. He has had difficulty breathing. He has had difficulty with ambulation. It has been associated with weakness in both legs. All systems otherwise negative, except as recorded above. 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 Current treatment includes chemotherapy. Previous treatment includes surgery. 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 Jaw surgery --bone removed and replaced with bone from lower leg. 3 tumors removed from brain. 2) COPD 3) GI bleedin (?source) Surgeries: Lung surgery (RUL wedge resection on 02/01/2014). Jaw Brain masses removed x 3. SOCIAL HISTORY Former smoker. No alcohol use or drug use. ADDITIONAL NOTES The nursing notes have been reviewed. PHYSICAL EXAM Vital Signs: 01/14/2017 15:38 BP: 87/56. HR: 112. RR: 16. O2 saturation: 100%. Temp: 97.7 F. Appearance: Alert. No acute distress. Eyes: Pale conjunctivae. Eyes normal inspection. No scleral icterus. ENT: Pharynx normal. No tonsillar exudate. The mucous membranes are not dry. Neck: Normal inspection. Neck supple. CVS: Tachycardia. Heart sounds normal. Pulses normal. Respiratory: No respiratory distress. Breath sounds normal. Abdomen: No visible injury. Soft and nontender. Back: Normal inspection. Skin: Skin warm and dry. Pallor. No diaphoresis. Extremities: Extremities exhibit normal ROM. No calf tenderness. No lower extremity edema. Neuro: Oriented X 3. No motor deficit. LABS, X-RAYS, AND EKG EKG: EKG time: (16:14). Regular narrow-complex tachycardia (ventricular rate 110). Sinus tachycardia. Normal P waves. Normal DANELLE. Normal QRS complex. Normal axis. Normal ST and T waves. aVL is isoelectric lead. EKG unchanged when compared with prior EKG. (no change from 02 NOV 2016). The study has been interpreted contemporaneously by me. The EKG appears to be a good tracing. Rhythm Strip #1: Sinus tachycardia. Chest X-ray: (IMPRESSION: 1. Right lower lobe infiltrate. 2. Multiple enlarging lung mets). Views: AP (portable). Technique: good. The X-rays were interpreted contemporaneously by me. The X-rays were discussed with the radiologist (via PACS note). Laboratory Tests: CBC w Diff: (CHRIS: 01/14/2017 15:52) ( MsgRcvd 01/14/2017 16:00) Final results Test Result Flag Units (Reference) WHITE BLOOD COUNT 14.5 H K/uL (4.5-11.5) RED BLOOD COUNT 2.88 L M/uL (4.50-5.90) HEMOGLOBIN 8.1 L gm/dL (13.5-17.5) HEMATOCRIT 24.9 L % (41.0-53.0) MEAN CELL VOLUME 87 fL (80-100) MEAN CORPUSCULAR HGB 28 pg (26-34) MEAN CORPUSCULAR HGB CONC 32 g/dL (31-37) RED CELL DISTRIBUTION WIDTH 16.8 H % (11.6-14.8) PLATELET COUNT 440 H K/uL (150-400) NEUTROPHIL % 78.1 H % (50-75) LYMPH % 4.5 L % (25-40) MONO % 11.9 % (3-14) EOSINOPHIL % 5.0 H % (0-4) BASOPHIL % 0.5 % (0-2) PT with INR: (CHRIS: 01/14/2017 15:52) ( [facility] 01/14/2017 16:22) Final results Test Result Flag Units (Reference) INR 1.1 (0.8-1.2) Low Intensity Therapy: INR 1.5-2.0 PT range 18.5-23.1Mod.Intensity Therapy: INR 2.0-3.0 PT range 23.1-31.5High Intensity Therapy: INR 2.5-3.5 PT range 27.4-35.5High Intensity Therapy 2: INR 3.0-4.0 PT range 31.5-39.3 D-DIMER QUANTITATIVE 0.68 H ug/mLFEU (0.27-0.52) The primary value of this quantitative assay relates toits negative predictive value (i.e. exclusion) of pulmonaryembolism/deep vein thrombosis/DIC.Elevated levels of d-dimer may also occur with:, age, cancer, inflammation, liver disease,post-op, infection, hematoma, coronary disease, peripheralarteriopathy, bleeding disorders and thrombolytic treatment.Results should be correlated with other clinical andradiological data.Testing Methodology: Latex Immunoassay BNP: (CHRIS: 01/14/2017 15:52) ( [facility] 01/14/2017 16:41) Final results Test Result Flag Units (Reference) B-TYPE NATRIURETIC PEPTIDE 24.9 pg/ml (5-100) CHEM 13 PANEL: (CHRIS: 01/14/2017 15:52) ( [facility] 01/14/2017 16:28) Final results Test Result Flag Units (Reference) GLUCOSE 110 mg/dL (70-110) BUN 21 H mg/dL (7-18) CREATININE 1.3 mg/dL (0.6-1.3) Estimated GFR 59.07 mL/min Estimated GFR- >60 mL/min Note: Persistent reduction over 3 months in eGFR<60 mL/min/1.73 m2 defines CKD. Patients with eGFR values>=60 mL/min/1.73 m2 may also have CKD if evidence ofpersistent proteinuria. Additional information may be foundat www.kidney.org. SODIUM 134 L mmol/L (136-145) POTASSIUM 4.5 mmol/L (3.5-5.1) CHLORIDE 98 mmol/L (98-107) CARBON DIOXIDE 31 mmol/L (21-32) CALCIUM 11.9 H mg/dL (8.5-10.1) TOTAL PROTEIN 6.3 L g/dL (6.4-8.2) ALBUMIN 1.9 L g/dL (3.3-5.0) BILIRUBIN, TOTAL 0.2 mg/dL (0.0-1.0) ALKALINE PHOSPHATASE 144 H U/L (46-116) AST (SGOT) 16 U/L (15-37) ALT (SGPT) 19 U/L (12-78) MAGNESIUM 1.9 mg/dL (1.8-2.4) AMYLASE 22 L U/L (25-115) CPK 15 L U/L (24-260) TROPONIN I <0.05 L ng/mL (0.00-1.5) TROPONIN REFERENCE RANGE:<0.1 NEGATIVE0.1-1.5 INDETERMINANT>1.5 POSITIVE Type & Cross: (CHRIS: 01/14/2017 16:32) ( MsgRcvd 01/14/2017 17:57) IP Test Result Flag Units (Reference) LEUKOREDUCED PACKED CELLS [id number] OP PC ISSUED 01/14/17 1753 [id number] OP PC XM COMPATIBLE PATIENT BLOOD TYPE O Positive Above is a corrected result. Previously reported on ( MsgRcvd 01/14/2017 17:) as: PATIENT BLOOD TYPE O Positive ANTIBODY SCREEN NEGATIVE Above is a corrected result. Previously reported on ( MsgRcvd 01/14/2017 17:) as: ANTIBODY SCREEN NEGATIVE . Pulse Oximetry: 01/14/2017 15:38 O2 saturation: 100%. Interpretation: normal. PROGRESS AND PROCEDURES Course of Care: NS 1 L IV. 2 units of PRBC's begun in the ED. Pt tachycardic, mildly hypotensive with low HCT. He has metastatic cancer and moderately debilitated from this. He should improve symptomatically with blood transfusion. 18:20 01/14/17. After d/w pt and POA, pt wishes to be DNR / DNI. Patient/family counseled. Old ED records reviewed. Transition orders written. Disposition: Observation in Acute Care. Condition: guarded and improved. CLINICAL IMPRESSION Severe acute anemia associated with cancer and chronic disease. Moderate hypercalcemia. Moderate leukocytosis. No lymphocytosis. (Electronically signed by Edward Zhou DO 01/14/2017 21:35)
--- NOTE | 2017-01-14 16:33 | ED ORDER SUMMARY ---
..... Patient: EUGENE BARR OrderSheet [facility] VisitID: [id number] [address] [place] [address] 66y, M Registration Date/Time: 01/14/2017 ORDER SHEET Weight: 68.0 kg (stated) Allergies: No Known Drug Allergy GENERAL ORDERS: Chest 2V Urgent (:01/14/2017 PHutchinson DO) (Ack 15:40 LTapper) (Cancelled: Other15:47 PHutchinson DO) Apartment Maintenance Technician (Continuous) (:01/14/2017 PHutchinson DO) (15:54 ASchmuck) UA-Culture if indicated Urgent (:01/14/2017 PHutchinson DO) (Ack 15:40 LTapper) (19:38 Catherine R.N.) Cardiac Panel Stat (:01/14/2017 PHutchinson DO) (Ack 15:40 LTapper) (15:54 ASchmuck) BNP Urgent (:01/14/2017 PHutchinson DO) (Ack 15:40 LTapper) (15:54 ASchmuck) D-Dimer Urgent (:01/14/2017 PHutchinson DO) (Ack 15:40 LTapper) (15:54 ASchmuck) Amylase Urgent (:01/14/2017 PHutchinson DO) (Ack 15:40 LTapper) (15:54 ASchmuck) PT with INR Urgent (:01/14/2017 PHutchinson DO) (Ack 15:40 LTapper) (15:54 ASchmuck) Oxygen (2 L/min) (NC) (:01/14/2017 PHutchinson DO) (15:54 ASchmuck) Pulse oximeter (01/14/2017 PHutchinson DO) (15:54 ASchmuck) EKG - ER Stat (:01/14/2017 PHutchinson DO) (Ack 15:40 LTapper) (15:54 ASchmuck) Vitals (:01/14/2017 PHutchinson DO) (Ack 15:51 LTapper) ([facility] Chest 1V Urgent (15:47 01/14/2017 [facility]) (Ack 15:51 LTapper) (16:[facility] Call (Place call to): (Dr Nettles) (16:31 01/14/2017 [facility]) (17:13 LTapper) Type & Cross (anemia) (symptomatic anemia) Urgent (16:32 01/14/2017 [facility]) (Ack 17:13 LTapper) (18:41 Catherine Suarez) MEDICATION ORDERS: IV FLUIDS: IV NS : initial bolus 500 mL (1000 mL/hr), then 250 mL/hr for X2 (NOW) (15:33 01/14/2017 [facility]) (Ack 15:55 [facility] (16:02 [facility]) ORDER SHEET NOTES: [Electronically signed by Johnny Porras R.N. (20:01 01/14/2017)] [Electronically signed by Edward Zhou DO (21:35 01/14/2017)] [Electronically locked/signed by Johnny Porras R.N. (20:01 01/14/2017)]
--- NOTE | 2017-01-14 16:33 | ED ORDER SUMMARY ---
..... Patient: EUGENE BARR OrderSheet [facility] VisitID: [id number] [address] [place] [address] 66y, M Registration Date/Time: 01/14/2017 ORDER SHEET Weight: 68.0 kg (stated) Allergies: No Known Drug Allergy GENERAL ORDERS: Chest 2V Urgent (:01/14/2017 PHutchinson DO) (Ack 15:40 LTapper) (Cancelled: Other15:47 PHutchinson DO) Character Impersonator (Continuous) (:01/14/2017 PHutchinson DO) (15:54 ASchmuck) UA-Culture if indicated Urgent (:01/14/2017 PHutchinson DO) (Ack 15:40 LTapper) (19:38 Catherine R.N.) Cardiac Panel Stat (:01/14/2017 PHutchinson DO) (Ack 15:40 LTapper) (15:54 ASchmuck) BNP Urgent (:01/14/2017 PHutchinson DO) (Ack 15:40 LTapper) (15:54 ASchmuck) D-Dimer Urgent (:01/14/2017 PHutchinson DO) (Ack 15:40 LTapper) (15:54 ASchmuck) Amylase Urgent (:01/14/2017 PHutchinson DO) (Ack 15:40 LTapper) (15:54 ASchmuck) PT with INR Urgent (:01/14/2017 PHutchinson DO) (Ack 15:40 LTapper) (15:54 ASchmuck) Oxygen (2 L/min) (NC) (:01/14/2017 PHutchinson DO) (15:54 ASchmuck) Pulse oximeter (01/14/2017 PHutchinson DO) (15:54 ASchmuck) EKG - ER Stat (:01/14/2017 PHutchinson DO) (Ack 15:40 LTapper) (15:54 ASchmuck) Vitals (:01/14/2017 PHutchinson DO) (Ack 15:51 LTapper) (15:54 [facility] Chest 1V Urgent (15:47 01/14/2017 [facility]) (Ack 15:51 LTapper) (16:02 [facility] Call (Place call to): (Dr Nettles) (16:31 01/14/2017 [facility]) (17:13 LTapper) Type & Cross (anemia) (symptomatic anemia) Urgent (16:32 01/14/2017 [facility]) (Ack 17:13 LTapper) (18:41 Catherine Suarez) MEDICATION ORDERS: IV FLUIDS: IV NS : initial bolus 500 mL (1000 mL/hr), then 250 mL/hr for X2 (NOW) (15:33 01/14/2017 [facility]) (Ack 15:55 [facility] (16:02 [facility]) ORDER SHEET NOTES: [Electronically signed by Johnny Porras R.N. (20:01 01/14/2017)] [Electronically signed by Edward Zhou DO (21:35 01/14/2017)] [Electronically locked/signed by Johnny Porras R.N. (20:01 01/14/2017)]
--- NOTE | 2017-01-14 16:33 | ED CLINICAL REPORT ---
Clinical Report - Physicians/Mid Levels [facility] [address] [place] [address] 01/14/2017 15:27 Patient: EUEGNE BARR Time Seen: 15:32. Arrived- By private vehicle. Historian- patient. HISTORY OF PRESENT ILLNESS Chief Complaint: DYSPNEA and WEAKNESS. This started several weeks ago and is still present. It was gradual in onset and has been waxing/waning. At its maximum, severity described as moderate. When seen in the E.D., severity described as moderate. Modifying factors- worsened by walking. Relieved by rest and oxygen. The patient has had weight loss, fatigue and generalized weakness. Similar symptoms previously: Recent medical care: The patient was seen recently at this facility and another facility in the emergency department and a clinic and hospitalized. REVIEW OF SYSTEMS No fever, sore throat, sinus drainage, nasal congestion or chest pain. No abdominal pain, nausea, vomiting, diarrhea or black stools. No bloody stools, difficulty with urination, skin rash, back pain or headache. No blackouts. The patient has had a cough. No change in baseline cough or sputum. It has been similar to previous symptoms. He has had difficulty breathing. He has had difficulty with ambulation. It has been associated with weakness in both legs. All systems otherwise negative, except as recorded above. 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 Current treatment includes chemotherapy. Previous treatment includes surgery. 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 Jaw surgery --bone removed and replaced with bone from lower leg. 3 tumors removed from brain. 2) COPD 3) GI bleedin (?source) Surgeries: Lung surgery (RUL wedge resection on 02/01/2014). Jaw Brain masses removed x 3. SOCIAL HISTORY Former smoker. No alcohol use or drug use. ADDITIONAL NOTES The nursing notes have been reviewed. PHYSICAL EXAM Vital Signs: 01/14/2017 15:38 BP: 87/56. HR: 112. RR: 16. O2 saturation: 100%. Temp: 97.7 F. Appearance: Alert. No acute distress. Eyes: Pale conjunctivae. Eyes normal inspection. No scleral icterus. ENT: Pharynx normal. No tonsillar exudate. The mucous membranes are not dry. Neck: Normal inspection. Neck supple. CVS: Tachycardia. Heart sounds normal. Pulses normal. Respiratory: No respiratory distress. Breath sounds normal. Abdomen: No visible injury. Soft and nontender. Back: Normal inspection. Skin: Skin warm and dry. Pallor. No diaphoresis. Extremities: Extremities exhibit normal ROM. No calf tenderness. No lower extremity edema. Neuro: Oriented X 3. No motor deficit. LABS, X-RAYS, AND EKG EKG: EKG time: (16:14). Regular narrow-complex tachycardia (ventricular rate 110). Sinus tachycardia. Normal P waves. Normal DANELLE. Normal QRS complex. Normal axis. Normal ST and T waves. aVL is isoelectric lead. EKG unchanged when compared with prior EKG. (no change from 02 NOV 2016). The study has been interpreted contemporaneously by me. The EKG appears to be a good tracing. Rhythm Strip #1: Sinus tachycardia. Chest X-ray: (IMPRESSION: 1. Right lower lobe infiltrate. 2. Multiple enlarging lung mets). Views: AP (portable). Technique: good. The X-rays were interpreted contemporaneously by me. The X-rays were discussed with the radiologist (via PACS note). Laboratory Tests: CBC w Diff: (CHRIS: 01/14/2017 15:52) ( MsgRcvd 01/14/2017 16:00) Final results Test Result Flag Units (Reference) WHITE BLOOD COUNT 14.5 H K/uL (4.5-11.5) RED BLOOD COUNT 2.88 L M/uL (4.50-5.90) HEMOGLOBIN 8.1 L gm/dL (13.5-17.5) HEMATOCRIT 24.9 L % (41.0-53.0) MEAN CELL VOLUME 87 fL (80-100) MEAN CORPUSCULAR HGB 28 pg (26-34) MEAN CORPUSCULAR HGB CONC 32 g/dL (31-37) RED CELL DISTRIBUTION WIDTH 16.8 H % (11.6-14.8) PLATELET COUNT 440 H K/uL (150-400) NEUTROPHIL % 78.1 H % (50-75) LYMPH % 4.5 L % (25-40) MONO % 11.9 % (3-14) EOSINOPHIL % 5.0 H % (0-4) BASOPHIL % 0.5 % (0-2) PT with INR: (CHRIS: 01/14/2017 15:52) ( [facility] 01/14/2017 16:22) Final results Test Result Flag Units (Reference) INR 1.1 (0.8-1.2) Low Intensity Therapy: INR 1.5-2.0 PT range 18.5-23.1Mod.Intensity Therapy: INR 2.0-3.0 PT range 23.1-31.5High Intensity Therapy: INR 2.5-3.5 PT range 27.4-35.5High Intensity Therapy 2: INR 3.0-4.0 PT range 31.5-39.3 D-DIMER QUANTITATIVE 0.68 H ug/mLFEU (0.27-0.52) The primary value of this quantitative assay relates toits negative predictive value (i.e. exclusion) of pulmonaryembolism/deep vein thrombosis/DIC.Elevated levels of d-dimer may also occur with:, age, cancer, inflammation, liver disease,post-op, infection, hematoma, coronary disease, peripheralarteriopathy, bleeding disorders and thrombolytic treatment.Results should be correlated with other clinical andradiological data.Testing Methodology: Latex Immunoassay BNP: (CHRIS: 01/14/2017 15:52) ( [facility] 01/14/2017 16:41) Final results Test Result Flag Units (Reference) B-TYPE NATRIURETIC PEPTIDE 24.9 pg/ml (5-100) CHEM 13 PANEL: (CHRIS: 01/14/2017 15:52) ( [facility] 01/14/2017 16:28) Final results Test Result Flag Units (Reference) GLUCOSE 110 mg/dL (70-110) BUN 21 H mg/dL (7-18) CREATININE 1.3 mg/dL (0.6-1.3) Estimated GFR 59.07 mL/min Estimated GFR- >60 mL/min Note: Persistent reduction over 3 months in eGFR<60 mL/min/1.73 m2 defines CKD. Patients with eGFR values>=60 mL/min/1.73 m2 may also have CKD if evidence ofpersistent proteinuria. Additional information may be foundat www.kidney.org. SODIUM 134 L mmol/L (136-145) POTASSIUM 4.5 mmol/L (3.5-5.1) CHLORIDE 98 mmol/L (98-107) CARBON DIOXIDE 31 mmol/L (21-32) CALCIUM 11.9 H mg/dL (8.5-10.1) TOTAL PROTEIN 6.3 L g/dL (6.4-8.2) ALBUMIN 1.9 L g/dL (3.3-5.0) BILIRUBIN, TOTAL 0.2 mg/dL (0.0-1.0) ALKALINE PHOSPHATASE 144 H U/L (46-116) AST (SGOT) 16 U/L (15-37) ALT (SGPT) 19 U/L (12-78) MAGNESIUM 1.9 mg/dL (1.8-2.4) AMYLASE 22 L U/L (25-115) CPK 15 L U/L (24-260) TROPONIN I <0.05 L ng/mL (0.00-1.5) TROPONIN REFERENCE RANGE:<0.1 NEGATIVE0.1-1.5 INDETERMINANT>1.5 POSITIVE Type & Cross: (CHRIS: 01/14/2017 16:32) ( MsgRcvd 01/14/2017 17:57) IP Test Result Flag Units (Reference) LEUKOREDUCED PACKED CELLS [id number] OP PC ISSUED 01/14/17 1753 [id number] OP PC XM COMPATIBLE PATIENT BLOOD TYPE O Positive Above is a corrected result. Previously reported on ( MsgRcvd 01/14/2017 17:) as: PATIENT BLOOD TYPE O Positive ANTIBODY SCREEN NEGATIVE Above is a corrected result. Previously reported on ( MsgRcvd 01/14/2017 17:) as: ANTIBODY SCREEN NEGATIVE . Pulse Oximetry: 01/14/2017 15:38 O2 saturation: 100%. Interpretation: normal. PROGRESS AND PROCEDURES Course of Care: NS 1 L IV. 2 units of PRBC's begun in the ED. Pt tachycardic, mildly hypotensive with low HCT. He has metastatic cancer and moderately debilitated from this. He should improve symptomatically with blood transfusion. 18:20 01/14/17. After d/w pt and POA, pt wishes to be DNR / DNI. Patient/family counseled. Old ED records reviewed. Transition orders written. Disposition: Observation in Acute Care. Condition: guarded and improved. CLINICAL IMPRESSION Severe acute anemia associated with cancer and chronic disease. Moderate hypercalcemia. Moderate leukocytosis. No lymphocytosis. (Electronically signed by Edward Zhou DO 01/14/2017 21:35)
--- NOTE | 2017-01-14 19:54 | NUR ---
PATIENT TO ROOM 306 FROM THE ER ACCOMPANIED BY THE [employer] AND THE FMAILY. PATIENT IS ALERT AND PLEASANT. WILL MONITOR. FIRST UNIT OF PRBC INFUSING FROM THE ER AT 100CC/HOUR.
--- NOTE | 2017-01-14 20:20 | History & Physical Report ---
Information Source Information Source: Self, Spouse/Partner Reliability: Fair History Chief Complaint lethargy History of Present Illness Patient is a 66 year old male that is presenting with a 2 week history of gradually worsening lethargy. 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 Patient has been operated on for the brain metastasis with no better outcome, additionally he has had radiation to the lungs. Patient additionally is on a chemotherapy agent but does not know the name. Patients last procedure was the lung radiation which since then has been very lethargic. Patient went to his physician for oncology who recommended that the patient go to the hospital immediately given his constellation of symptoms. Patient is otherwise hemodynamically stable. Patient History 1. Symptomatic anemia 2. Metastatic squamous cell carcinoma Social History Pt has a remote history of smoking, does not drink or use illicit substances. He lives at home with his , and peforms all his adls indepentely. Medications and Allergies Medications Home Medications Lovenox 50 mg bid Ibuprofen Current Medications Sig/Flor Start time Last Medication Dose Route Stop Time Status Admin Ketorolac 15 MG Q6H PRN 01/14 2030 UNV Tromethamine IV Acetaminophen 650 MG Q4H PRN 01/14 2015 UNV PO Sodium Chloride 1,000 ML ASDIRECTED 01/14 2015 UNV IV Ondansetron HCl 4 MG Q4H PRN 01/14 181 AC IV Sodium Chloride 1,000 ML ASDIRECTED 01/14 1815 AC IV Allergies Coded Allergies: NKA (01/14/17) Review of Systems Constitutional Weakness. Denies: Fever, Chills, Sweats, Malaise, Other. Eyes Denies: Pain, Vision Change, Conjunctival Inflammation, Eyelid Inflammation, Redness, Other. ENT Denies: Ear Pain, Ear Discharge, Nose Pain, Nasal Discharge, Nasal Congestion, Mouth Pain, Mouth Swelling, Throat Pain, Throat Swelling, Other. Respiratory Denies: Cough, Dry, SOB w/exertion, Wheezing, Hemoptysis, Pleuritic Pain, Sputum , Other. Physical Exam Vital Signs / I&Os Vital Signs Date Time Temp Pulse Resp B/P Pulse O2 O2 Flow FiO2 Ox Delivery Rate 01/15 1624 98.2 103 27 127/49 100 Nasal 0.5 Cannula 01/15 1611 99.3 101 20 122/52 100 Nasal 2.0 Cannula 01/15 1511 98.8 96 20 109/53 100 Nasal 2.0 Cannula 01/15 1444 98.1 92 18 111/48 97 Nasal 2.0 Cannula 01/15 1430 92 18 107/49 97 Nasal 2.0 Cannula 01/15 1417 98.1 92 21 114/56 100 Nasal 2.0 Cannula 01/15 1349 98.2 90 17 93/31 100 Nasal 1.5 Cannula 01/15 1342 98.1 90 16 94/44 100 0.5 01/15 1134 97.5 101 20 106/57 98 Nasal 2.0 Cannula 01/15 0800 3.0 01/15 0600 99.0 01/15 0553 99 20 92/45 100 Nasal 2.0 Cannula 01/15 0230 99.9 110 22 109/56 100 Nasal 2.0 Cannula 01/15 0100 100.2 107 19 85/41 100 Nasal 2.0 Cannula 01/14 2257 86/45 01/14 2245 98 19 98/54 100 Nasal 2.0 Cannula 01/14 2215 99.9 103 19 84/39 100 Nasal 2.0 Cannula 01/14 2210 99.9 103 19 84/39 100 Nasal 2.0 Cannula 01/14 2156 100.6 109 26 90/47 96 Nasal 2.0 Cannula 01/14 2146 100.4 109 22 84/41 100 Nasal 2.0 Cannula 01/14 2030 Nasal 2.0 Cannula 01/14 2005 3.0 01/14 1917 98.1 102 14 90/45 99 Nasal 3.0 Cannula I&O 01/14 0800 01/14 1600 01/15 0000 Intake Total Output Total 150 Balance -150 General Appearance Alert, Oriented X3, Mild distress HEENT Atraumatic, Moist mucous membranes, - jaw reconstruction Lungs Clear to auscultation, Normal air movement Cardiovascular Normal S1 and S2, No murmurs, gallops, rubs Abdomen Soft, No tenderness, No guarding Extremities No cyanosis, No clubbing, No edema, No tenderness Skin No Rashes, No Breakdown LAB Results Laboratory Tests 01/14 01/15 01/15 1850 UNK 0420 Chemistry Plasma Sodium (136 - 145 mmol/L) 136 Plasma Potassium (3.5 - 5.1 mmol/L) 4.1 Plasma Chloride (98 - 107 mmol/L) 103 CO2 (Enzymatic) (21 - 32 mmol/L) 27 BUN (7 - 18 mg/dL) 18 Creatinine (0.6 - 1.3 mg/dL) 1.2 Est GFR ( Amer) (mL/min) >60 Est GFR (Non-Af Amer) (mL/min) >60 Glucose (70 - 110 mg/dL) 106 Plasma Calcium (8.5 - 10.1 mg/dL) 10.9 Total Bilirubin (0.0 - 1.0 mg/dL) 0.4 AST (15 - 37 U/L) 15 ALT (12 - 78 U/L) 12 Alkaline Phosphatase (46 - 116 U/L) 125 Total Protein (6.4 - 8.2 g/dL) 5.4 Albumin (3.3 - 5.0 g/dL) 1.6 Hematology WBC (4.5 - 11.5 K/uL) 14.7 RBC (4.50 - 5.90 M/uL) 3.27 Hgb (13.5 - 17.5 gm/dL) 9.3 Hct (41.0 - 53.0 %) 28.6 MCV (80 - 100 fL) 88 MCH (26 - 34 pg) 28 RDW (11.6 - 14.8 %) 15.8 Neut % (Auto) (50 - 75 %) 83.6 Lymph % (Auto) (25 - 40 %) 2.9 [place] % (Auto) (3 - 14 %) 9.7 Eos % (Auto) (0 - 4 %) 3.5 Baso % (Auto) (0 - 2 %) 0.3 Plt Count, EDTA (150 - 400 K/uL) 341 PUBS MCHC (31 - 37 g/dL) 33 Other Body Source Gastric Occult Blood Cancelled Urines Urine Color YELLOW Urine Appearance CLEAR Urine pH (5.0 - 8.0) 6.0 Ur Specific [place] (1.010 - 1.030) 1.010 Urine Protein (NEGATIVE) NEGATIVE Urine Ketones (NEGATIVE) NEGATIVE Urine Blood (NEGATIVE) NEGATIVE Urine Nitrite (NEGATIVE) NEGATIVE Urine Bilirubin (NEGATIVE) NEGATIVE Urine Urobilinogen (0.2 - 1.0 EU/dL) 0.2 Ur Leukocyte Esterase (NEGATIVE) NEGATIVE Urine RBC (0 - 1 rbc/hpf) 0-1 Urine WBC (0 - 1 wbc/hpf) 3-5 Ur Epithelial Cells (0 - 5 EPI/hpf) 1-3 Urine Bacteria (NONE SEEN) TRACE (<1+) Urine Glucose (NEGATIVE) NEGATIVE Urine Comment CULT NOT INDICATED 01/15 01/15 0913 1025 Hematology WBC (4.5 - 11.5 K/uL) 13.1 RBC (4.50 - 5.90 M/uL) 3.04 Hgb (13.5 - 17.5 gm/dL) 8.7 Hct (41.0 - 53.0 %) 26.7 MCV (80 - 100 fL) 88 MCH (26 - 34 pg) 29 RDW (11.6 - 14.8 %) 15.7 Plt Count, EDTA (150 - 400 K/uL) 335 PUBS MCHC (31 - 37 g/dL) 33 Other Body Source Stool Occult Blood Pending Stl Occult Blood (ICT) (NEGATIVE) POSITIVE Occult Blood (ICT) #2 (NEGATIVE) Pending Occult Blood (ICT) #3 (NEGATIVE) Pending Assessment and Plan Problem List 1. Symptomatic anemia Plan - will transfuse two units - will monitor vital signs continually - will obtain daily cbcs 2. Metastatic squamous cell carcinoma Plan - pureed diet secondary to jaw recontruction - no treatment indicated while in hosue
[2017-01-14] MEDS ORDERED: ACETAMINOPHEN500 MG PO (20:24)
[2017-01-14] MEDS ORDERED: IBUPROFEN600 MG PO (20:25)
[2017-01-14] MEDS ORDERED: LOVENOX80 MG/0.8 SC (20:25)
[2017-01-14] MEDS ORDERED: MIRALAX EQUIVAL17 GM PO (20:25)
[2017-01-14] MEDS ORDERED: SENOKOT8.6 MG PO (20:26)
[2017-01-14] MEDS ORDERED: KEYTRUDA100 MG/4 M IV (20:26)
--- NOTE | 2017-01-14 21:35 | ED MED RECONCILIATION SUMMARY ---
Patient: EUGENE BARR Medication Reconciliation Report [facility] VisitID: [id number] [address] [place] [address] 66y, M Registration Date/Time: 01/14/2017 Weight: 68.0 kg Height/Length: 70 in. BMI: 21.5 ALLERGIES: No Known Drug Allergy The patient's Home Medications are listed below: THE FOLLOWING MEDICATIONS NEED TO BE RECONCILED: Acetaminophen Oral 1,000 mg, 2x a day Ibuprofen Oral, PRN Lovenox Subcutaneous 80 mg, 2x a day MiraLax Oral Pembrolizumab Intravenous, q 3 weeks Senna Lax Oral The source(s) of the original Home Medication information: patient patient's family member The following Medications were given to the patient in the Emergency Department: IV NS IV Fluids bolus 0, then 1000 mL/hr, administered: 01/14/2017 4:02:00 PM The following Medications were prescribed to the patient: None.
--- NOTE | 2017-01-14 21:35 | ED MED RECONCILIATION SUMMARY ---
Patient: EUGENE BARR Medication Reconciliation Report [facility] VisitID: [id number] [address] [place] [address] 66y, M Registration Date/Time: 01/14/2017 Weight: 68.0 kg Height/Length: 70 in. BMI: 21.5 ALLERGIES: No Known Drug Allergy The patient's Home Medications are listed below: THE FOLLOWING MEDICATIONS NEED TO BE RECONCILED: Acetaminophen Oral 1,000 mg, 2x a day Ibuprofen Oral, PRN Lovenox Subcutaneous 80 mg, 2x a day MiraLax Oral Pembrolizumab Intravenous, q 3 weeks Senna Lax Oral The source(s) of the original Home Medication information: patient patient's family member The following Medications were given to the patient in the Emergency Department: IV NS IV Fluids bolus 0, then 1000 mL/hr, administered: 01/14/2017 4:02:00 PM The following Medications were prescribed to the patient: None.
--- NOTE | 2017-01-14 21:35 | ED DISCHARGE INSTRUCTIONS ---
Patient: EUGENE BARR General Instructions [facility] VisitID: [id number] [address] [place] [address] 66y, M Registration Date/Time: 01/14/2017 Severe acute anemia associated with cancer and chronic disease. Moderate hypercalcemia. Moderate leukocytosis. No lymphocytosis. (Electronically signed by Edward Zhou DO 01/14/2017 21:35)
--- NOTE | 2017-01-14 21:35 | ED DISCHARGE INSTRUCTIONS ---
Patient: EUGENE BARR General Instructions [facility] VisitID: [id number] [address] [place] [address] 66y, M Registration Date/Time: 01/14/2017 Severe acute anemia associated with cancer and chronic disease. Moderate hypercalcemia. Moderate leukocytosis. No lymphocytosis. (Electronically signed by Edward Zhou DO 01/14/2017 21:35)
--- NOTE | 2017-01-14 21:35 | ED MAR SUMMARY ---
..... Medication Administration Record [facility] [address] [place] [address] Patient: EUGENE BARR Visit ID: [id number] 66y, M Weight: 68.0 kg Height/Length: 70 in BMI: 21.5 ALLERGIES: No Known Drug Allergy Start 16:02 01/14/2017 Mary Jo Horton,, Continued Upon Admission 19:00 01/14/2017 Johnny Porras RJuanNJuan Medication Administered: IV NS (SALINE), Dose: IV Fluids over 30 minute(s), Rate: 1000 mL/hr, Dispensed: 1000 mL bag, Site: #1 left AC. Medication Ordered: IV NS : initial bolus 500 mL (1000 mL/hr), then 250 mL/hr for X2 (NOW).
--- NOTE | 2017-01-14 21:35 | ED MAR SUMMARY ---
..... Medication Administration Record [facility] [address] [place] [address] Patient: EUGENE BARR Visit ID: [id number] 66y, M Weight: 68.0 kg Height/Length: 70 in BMI: 21.5 ALLERGIES: No Known Drug Allergy Start 16:02 01/14/2017 Mary Jo Horton,, Continued Upon Admission 19:00 01/14/2017 Johnny Porras RJuanNJuan Medication Administered: IV NS (SALINE), Dose: IV Fluids over 30 minute(s), Rate: 1000 mL/hr, Dispensed: 1000 mL bag, Site: #1 left AC. Medication Ordered: IV NS : initial bolus 500 mL (1000 mL/hr), then 250 mL/hr for X2 (NOW).
[2017-01-15] VITALS (14 sets, daily range): BP systolic 85–137; BP diastolic 31–76
--- NOTE | 2017-01-15 05:11 | NUR ---
CALLED DR YANES TO NOTIFY OF PATIENT'S PAIN AND PER PATIENT THE TORADOL IV NOT WORKING, DR YANES WRITING ORDERS FOR LIQUID TYLENOL.
--- NOTE | 2017-01-15 09:40 | NUR ---
CALLED DR PLASCENCIA TO ADVISE OF NEW H/H ORDER. NEW ORDER RECEIVED.
--- NOTE | 2017-01-15 14:43 | NUR ---
PT WAS STARTED ON ANOTHER UNIT OF RBCS AT 1338. PT IS TOLERATING WELL WITH NO S/S OF DISTRESS. PT STATES THAT HE "FEELS FINE ALSO" CALL LIGHT WITHIN REACH AND WILL CONTINUE TO MONITOR.
--- NOTE | 2017-01-15 16:19 | NUR ---
NUTRITION NOTE: Pt admitted with symptomatic anemia, pt has PMH of metastatic squamous cell carcinoma. He is currenly on a puree and drinkable diet as well, he does seem to be doing well with this diet texture. Rec add BOOST BID to help optimzie kcal and protein intake 2/2 dx/hx. RD to follow up with complete assessment per protocol.
--- NOTE | 2017-01-15 18:24 | Progress Note ---
Subjective General Pt seen and examined. Patient is hemodynamically stable without any evidence of hypotension or tachycardia. Constitutional Denies: Fever, Chills, Sweats, Weakness, Malaise, Other. Eyes Denies: Pain, Vision Change, Conjunctival Inflammation, Eyelid Inflammation, Redness, Other. ENT Denies: Ear Pain, Ear Discharge, Nose Pain, Nasal Discharge, Nasal Congestion, Mouth Pain, Mouth Swelling, Throat Pain, Throat Swelling, Other. Respiratory Denies: Cough, Dry, SOB w/exertion, Wheezing, Hemoptysis, Pleuritic Pain, Sputum , Other. Cardiovascular Denies: Chest Pain, Palpitations, Orthopnea, PND, Edema, Light-headedness, Other. Gastrointestinal Denies: Nausea, Vomiting, Abdominal Pain, Diarrhea, Constipation, Melena, Hematochezia, Other. Genitourinary Denies: Dysuria, Frequency, Incontinence, Hematuria, Retention, Other. Musculoskeletal Other. Denies: Neck Pain, Shoulder Pain, Arm Pain, Back Pain, Hand Pain, Leg Pain, Foot Pain (head pain ). Skin Denies: Rash, Lesions, Jaundice, Bruising, Other. Physical Exam Vital Signs / I&Os Vital Signs Date Time Temp Pulse Resp B/P Pulse O2 O2 Flow FiO2 Ox Delivery Rate 01/15 1624 98.2 103 27 127/49 100 Nasal 0.5 Cannula 01/15 1611 99.3 101 20 122/52 100 Nasal 2.0 Cannula 01/15 1511 98.8 96 20 109/53 100 Nasal 2.0 Cannula 01/15 1444 98.1 92 18 111/48 97 Nasal 2.0 Cannula 01/15 1430 92 18 107/49 97 Nasal 2.0 Cannula 01/15 1417 98.1 92 21 114/56 100 Nasal 2.0 Cannula 01/15 1349 98.2 90 17 93/31 100 Nasal 1.5 Cannula 01/15 1342 98.1 90 16 94/44 100 0.5 01/15 1134 97.5 101 20 106/57 98 Nasal 2.0 Cannula 01/15 0800 3.0 01/15 0600 99.0 01/15 0553 99 20 92/45 100 Nasal 2.0 Cannula 01/15 0230 99.9 110 22 109/56 100 Nasal 2.0 Cannula 01/15 0100 100.2 107 19 85/41 100 Nasal 2.0 Cannula 02/13 2257 86/45 01/14 2245 98 19 98/54 100 Nasal 2.0 Cannula 01/14 2215 99.9 103 19 84/39 100 Nasal 2.0 Cannula 01/14 2210 99.9 103 19 84/39 100 Nasal 2.0 Cannula 01/14 215 100.6 109 26 90/47 96 Nasal 2.0 Cannula 01/14 2146 100.4 109 22 84/41 100 Nasal 2.0 Cannula 01/14 2030 Nasal 2.0 Cannula 01/14 2005 3.0 01/14 191 98.1 102 14 90/45 99 Nasal 3.0 Cannula I&O 01/14 0800 01/14 1600 01/15 0000 Intake Total Output Total 150 Balance -150 General Appearance Alert, Oriented X3, No acute distress HEENT Atraumatic, EOMI, Moist mucous membranes, - s/p jaw reconstruction Lungs Clear to auscultation, Normal air movement Cardiovascular Regular rate and rhythm, Normal S1 and S2, No murmurs, gallops, rubs Abdomen Soft, No tenderness, No guarding Extremities No clubbing, No edema, Normal pulses, No tenderness, Strength = upper ext's, Strength = lower ext's Skin No Breakdown, No Significant Lesions LAB Results Laboratory Tests 01/14 01/15 01/15 1850 UNK 0420 Chemistry Plasma Sodium (136 - 145 mmol/L) 136 Plasma Potassium (3.5 - 5.1 mmol/L) 4.1 Plasma Chloride (98 - 107 mmol/L) 103 CO2 (Enzymatic) (21 - 32 mmol/L) 27 BUN (7 - 18 mg/dL) 18 Creatinine (0.6 - 1.3 mg/dL) 1.2 Est GFR ( Amer) (mL/min) >60 Est GFR (Non-Af Amer) (mL/min) >60 Glucose (70 - 110 mg/dL) 106 Plasma Calcium (8.5 - 10.1 mg/dL) 10.9 Total Bilirubin (0.0 - 1.0 mg/dL) 0.4 AST (15 - 37 U/L) 15 ALT (12 - 78 U/L) 12 Alkaline Phosphatase (46 - 116 U/L) 125 Total Protein (6.4 - 8.2 g/dL) 5.4 Albumin (3.3 - 5.0 g/dL) 1.6 Hematology WBC (4.5 - 11.5 K/uL) 14.7 RBC (4.50 - 5.90 M/uL) 3.27 Hgb (13.5 - 17.5 gm/dL) 9.3 Hct (41.0 - 53.0 %) 28.6 MCV (80 - 100 fL) 88 MCH (26 - 34 pg) 28 RDW (11.6 - 14.8 %) 15.8 Neut % (Auto) (50 - 75 %) 83.6 Lymph % (Auto) (25 - 40 %) 2.9 [place] % (Auto) (3 - 14 %) 9.7 Eos % (Auto) (0 - 4 %) 3.5 Baso % (Auto) (0 - 2 %) 0.3 Plt Count, EDTA (150 - 400 K/uL) 341 PUBS MCHC (31 - 37 g/dL) 33 Other Body Source Gastric Occult Blood Cancelled Urines Urine Color YELLOW Urine Appearance CLEAR Urine pH (5.0 - 8.0) 6.0 Ur Specific [place] (1.010 - 1.030) 1.010 Urine Protein (NEGATIVE) NEGATIVE Urine Ketones (NEGATIVE) NEGATIVE Urine Blood (NEGATIVE) NEGATIVE Urine Nitrite (NEGATIVE) NEGATIVE Urine Bilirubin (NEGATIVE) NEGATIVE Urine Urobilinogen (0.2 - 1.0 EU/dL) 0.2 Ur Leukocyte Esterase (NEGATIVE) NEGATIVE Urine RBC (0 - 1 rbc/hpf) 0-1 Urine WBC (0 - 1 wbc/hpf) 3-5 Ur Epithelial Cells (0 - 5 EPI/hpf) 1-3 Urine Bacteria (NONE SEEN) TRACE (<1+) Urine Glucose (NEGATIVE) NEGATIVE Urine Comment CULT NOT INDICATED 01/15 01/15 0913 1025 Hematology WBC (4.5 - 11.5 K/uL) 13.1 RBC (4.50 - 5.90 M/uL) 3.04 Hgb (13.5 - 17.5 gm/dL) 8.7 Hct (41.0 - 53.0 %) 26.7 MCV (80 - 100 fL) 88 MCH (26 - 34 pg) 29 RDW (11.6 - 14.8 %) 15.7 Plt Count, EDTA (150 - 400 K/uL) 335 PUBS MCHC (31 - 37 g/dL) 33 Other Body Source Stool Occult Blood Pending Stl Occult Blood (ICT) (NEGATIVE) POSITIVE Occult Blood (ICT) #2 (NEGATIVE) Pending Occult Blood (ICT) #3 (NEGATIVE) Pending Assessment and Plan Problem List 1. Symptomatic anemia Plan - pt had a suboptimal response to the transfusions - will transfuse one more unit - fecal occult positive - will do upper endoscopy tomorrow 2. Metastatic squamous cell carcinoma Plan - no treatment currently warranted - will resume treatment at cancer center 3. Head pain Plan - will treat with ibuprofen - will give carafate to prevent furhter inflammation - will try trial of percocet to see if patient can stay off of ibuprofen
--- NOTE | 2017-01-15 18:47 | NUR ---
ADVISED DR PLASCENCIA THAT PT'S HR UP TO [address] PLASCENCIA WILL ORDER A 500CC BOLUS OF FLUID AND BLANKET WERE TAKEN OFF PT AND WILL RECHECK TEMPERATURE.
--- NOTE | 2017-01-15 20:11 | NUR ---
DR YANES AWARE THAT PT IS TACHY IN THE 140'S, NO IV ACCESS - INFILTRATED. PICC TEAM MEMEBER WILL BE HERE IN ABOUT 2 HOURS. PT HAS NO COMPLAINTS OF DIZZINESS WHILE SITTING AT BEDSIDE. DR AWARE OF CURRENT VITAL SIGNS AND H/H. DR YANES IN ROOM TO SEE PT. NO NEW ORDERS RECIEVED AT THIS TIME.
--- NOTE | 2017-01-15 21:38 | NUR ---
18 GUAGE RIGHT BASILIC EXTENDED DWELL PLACED BY RT. PT TOLERATED WELL. FLUSHES WELL. UNREMARKABLE. IV FLUID BOLUS INFUSING AT THUIS TIME. PT REPOSITIONED SELF IN BED TO RIGHT SIDE. NO COMPLAINTS. LIGHTS OUT. CALL LIGHT WITHIN REACH. NO REQUESTS AT THIS TIME.
--- NOTE | 2017-01-15 21:43 | NUR ---
PT REMAINS ALERT AND ORIENTED X3. NO COMPLAINTS OF PAIN. GARBLED SPEECH NOTED. WAFFLE MATTRESS IN PLACE - PT MOVING AROUND ON OWN. URINAL AT BEDSIDE. NC AT 2 LITERS - O2 SATS AT 97%. NO CHEST PAIN, NO HEART PALPIATIONS.
--- NOTE | 2017-01-15 21:57 | NUR ---
FLUID BOLUS COMPLETED - HEART RATE AT 123. O2 SATS AT 97% ON 2 LITERS NC. NO SOB NOTED. WILL CONTINUE TO MONITOR.
--- NOTE | 2017-01-15 23:13 | NUR ---
PT MEDICATED WITH PO TYLENOL FOR A TEMP OF 100.3 AXILLARY. HEART RATE IN THE 120'S.
--- NOTE | 2017-01-15 23:25 | NUR ---
DR YANES AWARE THAT 2ND FLUID BOLUS IS COMPLETED, TEMP OF 100.3 WAS ADDRESSED WITH TYLENOL PO, HEART RATE REMAINS IN THE 130'S WHILE THE PT WAS UP AT BEDSIDE - NO NEW ORDERS AT THIS TIME - WILL CONTINUE TO MONITOR.
[2017-01-16] VITALS (11 sets, daily range): BP systolic 95–132; BP diastolic 48–75
--- NOTE | 2017-01-16 00:30 | NUR ---
DR AWARE THAT PTS HEART RATE IS AT 114 - NEW ORDERS RECIEVED FOR IV METOPROLOL - WRITTEN, READ BACK AND FAXED TO PHARMACY - WILL CONTINUE TO MONITOR.
--- NOTE | 2017-01-16 00:34 | NUR ---
PT IS NPO FOR AM PROCEDURE.
--- NOTE | 2017-01-16 01:07 | NUR ---
HEART RATE AT 95 - METOPROLOL IV EFFECTIVE.
--- NOTE | 2017-01-16 06:02 | NUR ---
H/H THIS AM IS 30.6/9.9, INR AT 1.2.
--- NOTE | 2017-01-16 11:34 | NUR ---
PT SLEPT AFTER MORPHINE.AMBULATED TO OR STRETCHER WITH 1 ASSIST. TO OR FOR EGD.
--- NOTE | 2017-01-16 12:32 | NUR ---
RECEIVED T UNIT, LEFT SIDE LYING WITH HEAD ELEVATED. PRODUCTIVE COUGH, THICKENED ORAL SECRETIONS
--- NOTE | 2017-01-16 13:06 | OPERATIVE REPORT ---
DATE OF SURGERY: 01/16/2017 SURGEON: Gilbert Dennison III, MD MEAT AND SEAFOOD MANAGER: None. PREOPERATIVE DIAGNOSIS: 1. Suspected upper gastrointestinal bleed POSTOPERATIVE DIAGNOSIS: 1. Gastric ulcer PROCEDURE PERFORMED: 1. Upper gastrointestinal endoscopy with gastric mucosal biopsies ANESTHESIA: TIVA. Posterior pharynx Cetacaine spray. INDICATIONS: The patient is a 66-year-old male admitted to [facility] with several medical problems including anemia. The patient, on admission, was noted to have a prehydration hematocrit of 8.1 and 24.9 with an INR of 1.1. After 2 units of packed red blood cells, hemoglobin and hematocrit was 8.7 and 26.7 respectively. Apparently he received another unit of packed red blood cells and his hemoglobin and hematocrit this morning are 9.9 and 30.6 respectively. SURGICAL FINDINGS: Normal-appearing duodenum and duodenal bulb. The gastric mucosa had evidence of ulcer in the greater curvature with appearance of old blood streaking in that area. The remaining site had another small superficial ulcer approximately 1 cm or 2 from that. The EG junction was 40 cm from the gum line. The esophagus appeared grossly normal. SURGICAL TECHNIQUE: The patient was brought to the operating room and placed in the left lateral decubitus position and was administered TIVA and monitored closely by anesthesia. After proper anesthesia had taken effect, an Olympus fiberoptic video flexible upper GI endoscope was passed down the patient's posterior pharynx. The esophagus intubated under direct visualization. The scope passed easily down the esophagus, through the EG junction, which was approximately 40 cm from the gum line into the gastric lumen. Immediately we were able to visualize a localized area of streaking of old blood and an area of what appeared to be inflammatory changes consistent with ulcer. The scope then passed into the duodenal bulb and into the second and third portion of the duodenum. On withdrawing the scope, the aforementioned findings noted. The scope was withdrawn into the gastric lumen and retroflexed with a good view of cardia, fundus, and EG junction from below, as well as the greater and lesser curvature. The ulcer of the greater curvature in question was biopsied to rule out adenocarcinoma. The patient tolerated the procedure well. The scope was completely withdrawn. The patient tolerated the procedure well and was transferred to the recovery room in stable condition. There were no intraoperative or anesthetic complications.
--- NOTE | 2017-01-16 13:13 | NUR ---
STABLE OR RETURN TO UNIT, ALERT, TALKATIVE, REPORTED GOOD TO KNOW IT WAS A PEPTIC ULCER AND NOT SOMETHING WORSE.
--- NOTE | 2017-01-16 18:54 | NUR ---
C/O BERRIOS AFTER EGD. MEDICATED WITH MORPHINE WITH RELIEF. HAS SLEPT MOST OF SHIFT. TAKING VERY LITTLE PO. MONITOR SHOWS ST LOW 100'S-118.
--- NOTE | 2017-01-16 19:06 | Progress Note ---
Subjective General Patient seen and examined. Patient has been still having slowly decreasing hemoglobin. Given his NSAID use gastric ulcer is most likely. Patient is scheduled for upper endoscopy today. Will follow up on results. Constitutional Denies: Fever, Chills, Sweats, Weakness, Malaise, Other. Eyes Denies: Pain, Vision Change, Conjunctival Inflammation, Eyelid Inflammation, Redness, Other. ENT Denies: Ear Pain, Ear Discharge, Nose Pain, Nasal Discharge, Nasal Congestion, Mouth Pain, Mouth Swelling, Throat Pain, Throat Swelling, Other. Respiratory Denies: Cough, Dry, SOB w/exertion, Wheezing, Hemoptysis, Pleuritic Pain, Sputum , Other. Cardiovascular Denies: Chest Pain, Palpitations, Orthopnea, PND, Edema, Light-headedness, Other. Gastrointestinal Denies: Nausea, Vomiting, Abdominal Pain, Diarrhea, Constipation, Melena, Hematochezia, Other. Genitourinary Denies: Dysuria, Frequency, Incontinence, Hematuria, Retention, Other. Musculoskeletal Denies: Neck Pain, Shoulder Pain, Arm Pain, Back Pain, Hand Pain, Leg Pain, Foot Pain, Other. Skin Denies: Rash, Lesions, Jaundice, Bruising, Other. Neurological Denies: Weakness, Numbness, Incoordination, Change in speech, Confusion, Seizures, Other. Physical Exam General Appearance Alert, Oriented X3, No acute distress HEENT - pt has improved scalp/skull pain Lungs Clear to auscultation, Normal air movement Cardiovascular Regular rate and rhythm, Normal S1 and S2, No murmurs, gallops, rubs Abdomen Soft, No tenderness Skin No Breakdown, No Significant Lesions Neurological Normal speech, Normal tone, No lateralizing signs Assessment and Plan Problem List 1. Symptomatic anemia Plan - most likely secondary to gastric ulcer - will follow up on endoscopy results - will continue to trend hemoglobin 2. Head pain Plan - stable with iv toradol - given possibility of occult gi bleed will limit nsaid use - have started oral morphine 3. Metastatic squamous cell carcinoma
--- NOTE | 2017-01-16 20:15 | NUR ---
PT RESTING IN BED. ALERT AND ORIENTED X3. HEADACHE FLUCTUATING 5-10/10 - INTERMITTANT SHARP PAIN. MEDICATED PT WITH IV MORPINE. PT HEART RATE AT 119, SINUS TACH PER TELE - MEDICATED WITH PRN METOPROLOL IV. BLOOD PRESSURE AT 119/66. PT MOVING AROUND IN BED ON OWN, NO WAFFLE MATTRESS. PT USING URINAL AT BEDSIDE ON OWN. NO COMPLAINTS OF DIZZINESS, NO SOB, NO NAUSEA, NO CHEST PAIN, NO HEART PALPIATIONS. PT REFUSES SCDS - "TOO HOT AND I CAN'T SLEEP WITH THEM ON". O2 SATS AT 99% ON 2 LITERS NC. REFSUES HS SNACK AT THIS TIME. CALL LIGHT WTHIN REACH. NO FURTHER REQUESTS AT THIS TIME.
[2017-01-17 03:57] VITALS: BP 107/64
--- NOTE | 2017-01-17 06:10 | NUR ---
LABS DRAWN ORDERED. MORHINE IV AND TYLENOL PO EFFECTIVE IN HEADACHE PAIN ALLOWING PT TO SLEEP. HEART RATE CONTROLLED WITH METOPROLOL IV - HEART RATE AT 85. O2 SATS AT 97% ON 2 LITERS NC. NO NOTABLE CHANGES. CALL LIGHT WITHIN REACH. NO REQUESTS THIS AM.
--- NOTE | 2017-01-17 07:31 | NUR ---
DR PLASCENCIA AWARE OF PTS REFUSAL OF SCDS.
[2017-01-17 07:34] VITALS: BP 82/51
[2017-01-17 08:11] VITALS: BP 92/63
[2017-01-17 11:06] VITALS: BP 86/53
[2017-01-17 14:25] VITALS: BP 100/63
--- NOTE | 2017-01-17 17:22 | NUR ---
HEART RATE IN THE 130'S (SINUS), GIVEN SOME IV TYLENOL, AWAITING LAB RESULTS.
[2017-01-17 17:30] VITALS: BP 90/55
[2017-01-17] MEDS ORDERED: MORPHINE S10 MG/5 ML PO (18:10)
--- NOTE | 2017-01-17 18:11 | Provider's Discharge Care Plan ---
Problem, Goal, Plan Problem List 1. Symptomatic anemia Instructions: - secondary to gastric ulcer and ibuprofen use , - stop using ibuprofen 2. Metastatic squamous cell carcinoma Instructions: - please follow up with your cancer specialist within 1 week
--- NOTE | 2017-01-17 18:44 | NUR ---
GONE OVER THE DISCHARGE INSTRUCTIONS WITH THE PATIENT REGARDING NEW CHANGES SUCH NO MORE TAKING IBUPROFEN AND THE NEW PRESCIRPTION FOR THE MORPHINE. PATIENT AND SPOUSE SHOWED UNDERSTANDING. KAILA EXTENDED DWELL DC'D. CATHETER INTACT. PATIENT GETTING DRESSED BY THE CAREPARTNER. WENT TO GO FILL PRESCRIPTION AT THE PHARMACY.
--- NOTE | 2017-01-17 19:31 | Discharge Summary ---
Discharge Summary Report Admit Date 01/14/17 Discharge Date 01/17/17 Admission Diagnosis symptomatic anemia Discharge Diagnosis anemia secondary to gastric ulcer Brief History The patient states that he has had surgery recently in his left lower abdomen a couple months ago, which was done by Dr. Dennison. Ever since that time, he has had issues of shortness of breath and some difficulty with breathing, that he has had a history of blood clots, he has bilateral DVTs as well as history of a Nirmal filter and Lovenox 80 mg subcutaneous b.i.d. for treatment. In the last 3 weeks, he has noticed that his legs were swollen and then he has had a couple of weeks of a rash that is red and itchy on his right leg, and then for the last 2 nights, he has had a lot of shortness of breath, especially when he tries to lay down, he cannot sleep at all, that this increasing in worse shortness of breath, brought him into the hospital today for further evaluation. In the emergency department, he was found to have an elevated BNP and a chest x-ray that was consistent with congestive heart failure and he is admitted for congestive heart failure, mild exacerbation, and treatment and management. Hospital Course Patient was initially transfused two units of blood with a suboptimal response. Patient was seen to corin hever and has been using nsaids very frequently at home. Patient had an upper endoscopy which showed the presence of a gastric ulcer, with possible malignant components. Patient had two more units infused with an appropriate response. Patient was stable for discharge, patient was asked to follow up with the pathology results of the endoscopy. Patient was additionally asked to have a repeat cbc done at his out patient oncologist. General Appearance Alert, Oriented X3, No acute distress HEENT PERRLA, Mucous membran moist/pink Lungs Clear to auscultation Cardiovascular Normal S1, Normal S2, No murmurs Abdomen Soft, No tenderness Skin No Rashes, No Breakdown Neurological Normal gait, Normal speech Discharge Instructions/Meds - follow up with pmd - continue with proton pump inhibitors - follow up with the results of your endoscopy
--- NOTE | 2017-01-17 19:31 | Progress Note ---
Subjective General Patient seen and examined. Patient was seen to have a gastric ulcer on endoscopy. Patient responded well to the additional units of blood that was provided. Constitutional Denies: Fever, Chills, Sweats, Weakness, Malaise, Other. Eyes Denies: Pain. ENT Denies: Ear Pain, Ear Discharge, Nose Pain, Nasal Discharge, Nasal Congestion, Mouth Pain, Mouth Swelling, Throat Pain, Throat Swelling, Other. Respiratory Denies: Cough, Dry, SOB w/exertion, Wheezing, Hemoptysis, Pleuritic Pain, Sputum , Other. Cardiovascular Denies: Chest Pain, Palpitations, Orthopnea, PND, Edema, Light-headedness, Other. Gastrointestinal Denies: Nausea, Vomiting, Abdominal Pain, Diarrhea, Constipation, Melena, Hematochezia, Other. Musculoskeletal Denies: Neck Pain, Shoulder Pain, Arm Pain, Back Pain, Hand Pain, Leg Pain, Foot Pain, Other. Physical Exam General Appearance Alert, Oriented X3, No acute distress HEENT Atraumatic, PERRLA, Moist mucous membranes, - persistent scalp pain which is controlled Lungs Clear to auscultation, Normal air movement Cardiovascular Regular rate and rhythm, Normal S1 and S2, No murmurs, gallops, rubs Abdomen Soft, No tenderness Extremities No cyanosis, No clubbing, No edema, Normal pulses Neurological Normal speech, Normal tone, Cranial nerves intact, No lateralizing signs Assessment and Plan Problem List 1. Symptomatic anemia Plan - secondary to gastric ulcer bleeding - will initiate ppi and carafate - will limit nsaid use now and as an out patient - will need a repeat cbc as an out patient 2. Head pain Plan - controlled with opioids - will continue with oral preperations
--- NOTE | 2017-01-17 20:10 | NUR ---
I discussed with the patient their current medications, possible side effects, and answered questions.
--- NOTE | 2017-01-17 20:49 | NUR ---
PT IV DC'D PT ESCORTED OUT IN A W/C TO A PRIVATE VEHICLE WITH FAMILY.
== END 2017-01-17 19:30 | disposition home or self-care (01) ==
LOC: ED SRH 15:27 → TRANS SRH 18:25 → CC SRH 18:25
PROVIDERS: Specialist; ADMIT Emergency Medicine
PROC: 30233N1 Transfusion of Nonautologous Red Blood Cells into Peripheral Vein, Percutaneous Approach (ICD-10-PCS; 2017-01-14)
PROC: 30233N1 Transfusion of Nonautologous Red Blood Cells into Peripheral Vein, Percutaneous Approach (ICD-10-PCS; 2017-01-15)
PROC: 0DB68ZX Excision of Stomach, Via Natural or Artificial Opening Endoscopic, Diagnostic (ICD-10-PCS; principal; 2017-01-16 12:00)
DX: K25.4 Chronic or unspecified gastric ulcer with hemorrhage (principal); D50.0 Iron deficiency anemia secondary to blood loss (chronic); Z85.21 Personal history of malignant neoplasm of larynx; C79.31 Secondary malignant neoplasm of brain; C78.01 Secondary malignant neoplasm of right lung; C79.89 Secondary malignant neoplasm of other specified sites; Z90.2 Acquired absence of lung [part of]; J44.9 Chronic obstructive pulmonary disease, unspecified; Z92.3 Personal history of irradiation; E83.52 Hypercalcemia; Z87.891 Personal history of nicotine dependence
CPT/HCPCS: 29229; 29249; 29259; 29264; 50004; 60001; 82943; 83526; 90001; 90004; 90074; 90100; 90155; 90616; 91004; 91295; 91320; 91544; 91556; 92530; 92610; 92720; 92755; 94060; 95059

== ENCOUNTER 2017-01-24 15:34 | Inpatient (IN) | payer OTHER ==
[~2017-01-24] VITALS: Ht 172.7 cm; Wt 64.4 kg
[~2017-01-24 15:34] MED LIST: ACETAMINOPHEN500 MG PO; IBUPROFEN600 MG PO; KEYTRUDA100 MG/4 M IV; LOVENOX80 MG/0.8 SC; MIRALAX EQUIVAL17 GM PO; MORPHINE S10 MG/5 ML PO; SENOKOT8.6 MG PO
--- NOTE | 2017-01-24 17:27 | DIAGNOSTIC IMAGING REPORT ---
PROCEDURE: XR CHEST 1 VIEW INDICATION: LUNG CANCER TECHNIQUE: Portable AP view 05:00 p.m. COMPARISON: Chest 01/14/2017 and 11/02/2016 FINDINGS: Diffuse infiltrate throughout the right lung with right pleural effusion. Multiple enlarging metastatic nodules throughout both lungs. Increase in the hilar mass and mediastinal shift. IMPRESSION: 1. Diffuse infiltrate throughout the right lung with right pleural effusion.
--- NOTE | 2017-01-24 17:40 | DIAGNOSTIC IMAGING REPORT ---
PROCEDURE: CT HEAD WITHOUT CONTRAST INDICATION: SEIZURE, MENTAL STATUS CHANGE TECHNIQUE: Noncontrast axial images with sagittal and coronal reformations. COMPARISON: None. FINDINGS: Left parietal craniotomy with underlying approximate 2.5 cm parietal mass with moderate surrounding edema. There is an additional mass measuring 4 x 5.5 cm to the right of the midline with erosion of the inner and outer table of the skull. There is no intracranial hemorrhage, herniation or midline shift. Sulci and ventricular system are normal. Moderate bilateral maxillary sinus disease with bilateral antral windows . IMPRESSION: 1. Left posterior parietal craniotomy with underlying a 2.5 cm mass with adjacent edema 2. 4 x 5.5 cm parietal mass right of midline with erosion of the inner and outer table of the skull 3. These findings are most consistent with metastases 4. Findings discussed with Dr. Jimenes at 05:31 p.m.
--- NOTE | 2017-01-24 19:18 | ED CLINICAL REPORT ---
Clinical Report - [facility] [address] [place] [address] 01/24/2017 15:36 Patient: EUGENE BARR Time Seen: 16:04. Arrived- By private vehicle. Historian- patient. HISTORY OF PRESENT ILLNESS Chief Complaint: SINGLE SEIZURE. This occurred just prior to arrival. Post-ictal in the emergency department (obtunded). Seizure was witnessed. Witnessed by family member. Had a single isolated seizure. Seizure activity lasted seconds. The patient lost consciousness. Generalized motor activity observed. No apnea noted. Post-ictally has been obtunded. Did not lose pulse. No injuries noted. Did not recently change anticonvulsant medication. Has not recently been ill. No recent sleep deprivation or alcohol recently. Pt has metastatic esophageal/pharyngeal CA with known bone, brain, and lung masses. Spouse states pt has never had a sz before. He has declined Hospice, because he does not want strangers taking care of him. Similar symptoms previously: None. Recent medical care: The patient was seen recently at another facility. ( PT has been followed at [facility], and has been on trial therapy with an immunomodulator. states he missed his most recent dose, due to illness.). REVIEW OF SYSTEMS No fever, chest pain, palpitations, difficulty breathing or eye irritation. No sore throat, abdominal pain, nausea, diarrhea or black stools. No difficulty with urination, skin rash, enlarged lymph nodes, vomiting or bloody stools. No joint pain. The patient has had a cough (chronically). All systems otherwise negative, except as recorded above. PAST HISTORY Problems: Leukocytosis. Hypercalcemia. Anemia. Brain tumors. Lung Cancer. GI Bleeding. Constipation. COPD - Chronic Obstructive Pulmonary Disease. Metastatic squamous cell carcinoma. Additional Surgeries: 3 tumors removed from brain. Jaw surgery --bone removed and replaced with bone from lower leg. Lobectomy of lung. Medications: Tylenol with morphine liquid. Morphine 0.5mg liquid po q6hrs. Acetaminophen Oral 1,000 mg, 2x a day. Allergies: No Known Drug Allergy. SOCIAL HISTORY Smoker- current status unknown. No alcohol use or drug use. ADDITIONAL NOTES The nursing notes have been reviewed. PHYSICAL EXAM Vital Signs: 01/24/2017 17:04 Temp: 98.5 F. 01/24/2017 15:49 BP: 111/65. HR: 140. RR: 12. O2 saturation: 97%. Have been reviewed. Appearance: Lethargic. Patient in mild distress. Distress appears respiratory. Eyes: Pupils equal, round and reactive to light. No nystagmus. ENT: Moist mucous membranes. Neck: Normal inspection. CVS: Normal heart rate and rhythm. Heart sounds normal. Pulses normal. Respiratory: Mild respiratory distress with accessory muscle use. Moderately decreased air movement diffusely over both lungs. (PT has shallow, irregular respirations.). Abdomen: Soft. Skin: Skin warm and dry. No rash. Normal skin turgor. Moderate pallor. Extremities: No lower extremity edema. Neuro: Alertness is decreased(lethargic). LABS, X-RAYS, AND EKG EKG: EKG time: (1656). No acute ischemia. Rate: 148. Regular narrow-complex tachycardia. Sinus tachycardia. Normal P waves. Normal DANELLE. Normal QRS complex. Normal axis. Normal QT and QTc. Non-specific ST segment / T wave abnormalities. Prior EKG unavailable. The study has been interpreted contemporaneously by me. The study has been independently viewed by me. The EKG appears to be a good tracing. I agree with and confirm the computer reading of the EKG. Rhythm Strip #1: Time: (1600). Rate= 147. Sinus tachycardia. Regular rhythm. Narrow QRS complexes. No ectopy. Conduction normal. Normal ST segments and T waves. The study was interpreted by me. Chest X-ray: Patchy infiltrate in the right middle lobe and right lower lobe and left upper lobe and left lower lobe. Consistent with pneumonia. Normal heart size. Mediastinum normal. Great vessels normal. Soft tissues normal. No fracture. No bony lesion present. Views: AP (portable). Technique: good. The X-rays were independently viewed by me, interpreted by the radiologist and contemporaneously by me and discussed with the radiologist. Prior films were not available for comparison. CT Head: No acute changes. No hemorrhage, no midline shift and no hydrocephalus. (Pt has multiple intraparenchymal masses, as well as bony and extracranial masses.). Head CT performed without contrast. The study was independently viewed by me, interpreted by the radiologist and contemporaneously by me and discussed with the radiologist. Prior studies were not available for comparison. Laboratory Tests: UA-Culture if indicated: (CHRIS: 01/24/2017 17:30) ( [facility] 01/24/2017 18:22) Final results Test Result Flag Units (Reference) URINE COLOR YELLOW URINE APPEARANCE CLEAR URINE GLUCOSE NEGATIVE (NEGATIVE) URINE BILIRUBIN NEGATIVE (NEGATIVE) URINE KETONE NEGATIVE (NEGATIVE) URINE SPECIFIC GRAVITY >= 1.030 (1.010-1.030) URINE PH 5.5 (5.0-8.0) URINE PROTEIN 1+ (NEGATIVE) URINE UROBILINOGEN 0.2 EU/dL (0.2-1.0) URINE NITRITE NEGATIVE (NEGATIVE) URINE BLOOD TRACE-LYSED (NEGATIVE) URINE LEUK ESTERASE NEGATIVE (NEGATIVE) URINE RBC 0-1 rbc/hpf (0-1) URINE WBC 0-1 wbc/hpf (0-1) URINE EPITHELIAL CELLS 0-1 EPI/hpf (0-5) URINE BACTERIA NONE SEEN (NONE SEEN) URINE COMMENT CULT NOT INDICATED 2+ [id number] Hyaline Casts/l.p.f.URINE CULTURES ARE SET-UP BASED ON THE FOLLOWING CRITERIA:POSITIVE NITRITEPOSITIVE LEUKOCYTE ESTERASEGREATER THAN 10 WHITE BLOOD CELLSMODERATE (2+) OR GREATER BACTERIA CBC w Diff: (CHRIS: 01/24/2017 17:40) ( [facility] 01/24/2017 18:03) IP Test Result Flag Units (Reference) WHITE BLOOD COUNT 35.7 *H K/uL (4.5-11.5) CRITICAL RESULTS CALLEDCalled to Erick CESAR 01/24/17 1802Were 2 patient identifiers used? YWas the result read back? Y RED BLOOD COUNT 4.12 L M/uL (4.50-5.90) HEMOGLOBIN 11.8 L gm/dL (13.5-17.5) HEMATOCRIT 36.7 L % (41.0-53.0) MEAN CELL VOLUME 89 fL (80-100) MEAN CORPUSCULAR HGB 29 pg (26-34) MEAN CORPUSCULAR HGB CONC 32 g/dL (31-37) RED CELL DISTRIBUTION WIDTH 16.3 H % (11.6-14.8) PLATELET COUNT 506 H K/uL (150-400) NEUTROPHIL % 91.9 H % (50-75) LYMPH % 2.1 L % (25-40) MONO % 5.8 % (3-14) EOSINOPHIL % 0.2 % (0-4) BASOPHIL % 0 % (0-2) CMP: (CHRIS: 01/24/2017 17:40) ( [facility]d 01/24/2017 18:28) Final results Test Result Flag Units (Reference) GLUCOSE 187 H mg/dL (70-110) BUN 22 H mg/dL (7-18) CREATININE 1.6 H mg/dL (0.6-1.3) Estimated GFR 46.48 mL/min Estimated GFR- 56.34 mL/min Note: Persistent reduction over 3 months in eGFR<60 mL/min/1.73 m2 defines CKD. Patients with eGFR values>=60 mL/min/1.73 m2 may also have CKD if evidence ofpersistent proteinuria. Additional information may be foundat www.kidney.org. SODIUM 140 mmol/L (136-145) POTASSIUM 3.4 L mmol/L (3.5-5.1) CHLORIDE 100 mmol/L (98-107) CARBON DIOXIDE 30 mmol/L (21-32) CALCIUM 14.1 *H mg/dL (8.5-10.1) CRITICAL RESULTS CALLEDCalled to TALI 01/24/17 1828Were 2 patient identifiers used? YESWas the result read back? YES TOTAL PROTEIN 6.8 g/dL (6.4-8.2) ALBUMIN 2.0 L g/dL (3.3-5.0) BILIRUBIN, TOTAL 0.3 mg/dL (0.0-1.0) ALKALINE PHOSPHATASE 217 H U/L (46-116) AST (SGOT) 20 U/L (15-37) ALT (SGPT) 14 U/L (12-78) . Pulse Oximetry: 01/24/2017 15:49 O2 saturation: 97%. (FIO2 - room air). Interpretation: normal. Pulse Oximetry #2: 01/24/2017 19:35 O2 saturation: 78%. (FIO2- non-rebreather). Interpretation: hypoxemia. PROGRESS AND PROCEDURES Course of Care: I did d/w the many family members present that though it is possible there are other causes, the most likely cause of the seizure is the brain masses, and this is an inevitability. As pt is DNR and clearly terminal, the degree of work-up we put the pt through is up to their discretion. Family discussed the matter, and affirmed DNR status, but stated they would like to proceed with a work-up, including head CT and blood work. These were done, as well as UA and EKG, and were unremarkable for acute abnormalities. CXR did show pneumonia, and pt was started on abx for this. PT was persistently significantly tachycardic, with irregular, shallow respirations and progressive hypoxia, requiring increased supplemental oxygen levels. Pt did seize again in the ED, for which he was given a dose of Ativan. I did advise the family of the results, of the pt's grave prognosis and imminent fatal decline, and that a decision needs to be made whether to take the pt home for comfort care, or admit the pt to the hospital. immediately stated she would like the pt admitted. Critical care performed (120 minutes). Time is exclusive of separately billable procedures. Time includes: direct patient care, patient reassessment, coordination of patient care, interpretation of data (laboratory data, pulse oximetry, chest xrays and cardiac output measurements), review of patient's medical records, medical consultation, family consultation regarding treatment decisions and documentation of patient care- see progress notes. The patient required critical care due to the acute impairment of vital organ systems (cardiovascular, respiratory and central nervous system) and a high probability of imminent and life threatening deterioration. Multiple emergent and urgent interventions were required to prevent sudden life threatening deterioration. Discussed case with on-call health care provider, (Freddy). Reviewed test results and need for additional work-up. Agreed upon treatment plan and decision to admit. Health care provider will see patient in ED. Family counseled in person regarding the patient's critical condition, test results, diagnosis and need for follow-up, poor prognosis for survival and DNR (Do Not Resuscitate) considerations for the patient. Concerns were addressed. Old medical records reviewed. Disposition: Admitted to Acute Care. Condition: critical. CLINICAL IMPRESSION New onset generalized seizure (associated with intracranial neoplasm). No history of epilepsy. Bacterial pneumonia with hypoxemia, respiratory failure and sepsis. Vital signs recorded and reviewed; empiric antibiotics given in the ED. Bone cancer \, brain cancer \, lung cancer. Metastases present. Received chemotherapy in past and received radiation therapy in past. Hypoxia. (Electronically signed by Brenda Jimenes MD 01/28/2017 10:48)
--- NOTE | 2017-01-24 19:18 | ED ORDER SUMMARY ---
..... Patient: EUGENE [facility]ARR [facility] [id number] [place] [address] 66y, M Registration Date/Time: 01/24/2017 ORDER SHEET Weight: 0.4 kg (estimated) Allergies: No Known Drug Allergy GENERAL ORDERS: CT Head wo Cont Urgent (16:47 01/24/2017 Rosanna MORRIS) (Ack 17:07 Alondra) (17:15 DBeyer R.N.) Chest 1V Urgent (16:47 01/24/2017 Rosanna MORRIS) (Ack 17:07 Alondra) (17:15 DBeyer R.N.) Technical Solutions Consultant (Continuous) (16:47 01/24/2017 Rosanna MORRIS) (17:05 LSullivan R.N.) (17:07 Susanne R.N.) CBC w Diff Urgent (16:48 01/24/2017 Rosanna MORRIS) (Ack 17:07 Alondra) (18:04 TBergley) CMP Urgent (16:48 01/24/2017 Rosanna MORRIS) (Ack 17:07 Alondra) (18:04 TBergley) UA-Culture if indicated Urgent (16:48 01/24/2017 Rosanna MORRIS) (Ack 17:07 Alondra) (17:32 LSullivan R.N.) Pulse oximeter (16:48 01/24/2017 Rosanna MORRIS) (17:05 LSullivan R.N.) (17:07 Susanne R.N.) EKG - ER Stat (16:48 01/24/2017 Rosanna MORRIS) (16:57 TBergley) Oxygen (2 L/min) (NC) (16:48 01/24/2017 Rosanna MORRIS) (17:07 Susanne R.N.) Mane Catheter (17:33 01/24/2017 LSullivan R.N. verbal order read back to Rosanna MORRIS) (17:33 LSullivan R.N.) MEDICATION ORDERS: IV FLUIDS: IV NS : initial bolus 1000 mL (1000 mL/hr), then none - (NOW) (16:47 01/24/2017 Rosanna MORRIS) (17:32 LSullivan R.N.) Rocephin IV 2 gm/50mL (NOW) (18:16 01/24/2017 Rosanna MORRIS) (18:31 Negro R.N.) Zithromax IV 500 mg/250 mL (NOW) (18:16 01/24/2017 Rosanna MORRIS) (19:35 Negro R.N.) Ativan IV 1 mg (NOW) (19:36 01/24/2017 Negro R.N. verbal order read back to Rosanna MORRIS) (19:36 Negro R.N.) ORDER SHEET NOTES: [Electronically signed by Brenda Jimenes MD (10:48 01/28/2017)] [Electronically signed by Tavon Priest R.N. (13:15 02/02/2017)] [Electronically locked/signed by Tavon Priest R.N. (13:15 02/02/2017)]
--- NOTE | 2017-01-24 19:18 | ED NURSING NOTES ---
Clinical Report - [facility]es [facility] [place] [address] 01/24/2017 15:36 Patient: EUGENE BARR TRIAGE Triage time 15:41. Chief Complaint: SEIZURES (multiple episodes) and (the last one was "really long, 30 minutes"). --15:49 Elin Maria R.N. 15:49 01/24/17. BP: 111/65. HR: 140. RR: 12. O2 saturation: 97% on non-rebreather at 15 liters/minute. --15:50 Elin Maria R.N. 17:04 01/24/17. Temp: 98.5 F (axillary). --17:05 Elin Maria R.N. ( Unknown weight and height). --13:15 Tavon Priest R.N. Weight: 0.4 kg estimated. Height/Length: 1 inches Estimated. BMI: 640. --13:14 Tavon Priest R.N. Medications Acetaminophen Oral 1,000 mg, 2x a day. --15:44 Elin Maria R.N. Morphine 0.5mg liquid po q6hrs. --15:45 Elin Maria R.N. Tylenol with morphine liquid. --15:47 Elin Maria R.N. Allergies No Known Drug Allergy. --15:44 Elin Maria R.N. History Arrived by EMS. Historian: family. Primary physician (Dr Martines oncologist at [facility], Dr Ellsworth for oncology at [facility]). ( Pt arrived in comatose state, but has been medicated with IV Valium x 2 doses.). This occurred just prior to arrival and today. PAST MEDICAL HX: ( last seizure 25 years ago). --15:49 Elin Maria R.N. PROBLEMS: Leukocytosis. Hypercalcemia. Anemia. Brain tumors. Lung Cancer. GI Bleeding. Constipation. Abdominal Pain. COPD - Chronic Obstructive Pulmonary Disease. Metastatic squamous cell carcinoma. --15:50 Elin Maria R.N. ADDITIONAL SURGERIES: 3 tumors removed from brain. Jaw surgery --bone removed and replaced with bone from lower leg. Lobectomy of lung. --15:50 Elin Maria R.N. Interventions ID band on patient. To room. --15:49 Elin Maria R.N. PHYSICAL ASSESSMENT 15:51 01/24/17. GENERAL / NEURO / PSYCH: Decreased awareness. Canmer Coma Scale: 2- eyes do not open (1); best motor response- none (1). --15:51 Elin Maria R.N. 15:51 01/24/17. HEENT: ( All family at bedside, all agree pt is DNR). --15:51 Elin Maria R.N. NURSING PROGRESS NOTES 15:52 01/24/17. athletic monitor, pulse oximeter and NIBP monitor placed on patient; athletic monitor- Lead II and V1; monitor alarms on. Seizure precautions initiated. Patient identifiers checked. Call light placed in reach. Bed placed in lowest position. Patient ready for evaluation. --15:52 Elin Maria R.N. 15:57 01/24/17. ( Pt orally suctioned for secretions, Fede menon respirations, unconscious, oral care given.). --15:57 Elin Maria R.N. 16:59 01/24/17. EKG time: (1656 PM). EKG was ordered, performed by a tech and shown to the ED physician. --16:59 Colleen Dowd 16:15 01/24/17. BP: 114/71. HR: 144. RR: 13. O2 saturation: 91% on non-rebreather at 10 liters/minute. --17:10 Elin Maria R.N. 17:00 01/24/17. BP: 112/71. HR: 146. RR: 27. O2 saturation: 100%. Temp: 91 F. --17:11 Elin Maria R.N. Patient transported to CT by stretcher with tech. --17:11 Elin Maria R.N. 15:19 01/24/2017 Site #1 started prior to arrival by EMS via IV in the right antecubital space with an 20g angiocath, with aseptic technique. --17:20 Elin Maria R.N. 17:17 01/24/17. ( Approximately 8 family members found in room, asked if they could stay in the consultation room while we work with the patient, and that 2 visitors at a time is fine.). --17:17 Elin Maria R.N. 17:32 01/24/2017 Started bag #1 1000 mL IV Fluids IV NS (Saline); at 1000 mL/hr over 1 hour(s) via site #1 --17:32 Elin Maria R.N. 14 fr farah catheter placed. Reason for indwelling catheter: retention and patient's decreased level of consciousness. During procedure hand hygiene observed and sterile equipment and aseptic technique used. Return of deshawn-colored urine; attached to bedside drainage bag positioned below the bladder. He tolerated procedure fair ( requested farah to be placed so pt "doesn't pee on himself"). --17:37 Elin Maria R.N. ( Upon entering room, 6 family members in room, when asked to leave, they seemed irritated that they were asked to leave.). --17:38 Elin Maria R.N. 17:41 01/24/17. Care transferred and report given (to Tavon). --17:41 Elin Maria R.N. 15:52. ( Pt arrived with IV bag of NS that EMS started sometime CLIENT SUPPORT COORDINATOR, about 300 mls LTC, infusing into RAC well. No swelling.). --17:45 Elin Maria R.N. 18:03. Critical value relayed to ED by lab. Critical value received by RN. WBC: 35.7. Critical value read back. ED physician notifed of critical value. --18:03 Yuridia Rose R.N. 18:06 01/24/17. BP: 133/77. HR: 140. RR: 14. O2 saturation: 91%. --18:08 Tavon Priest R.N. ( First contact by RN with this pt, report from Elin, pt family at bedside pt is no responsive on non-rebreather 12L). --18:08 Tavon Priest R.N. ( family updated on plan of care). --18:08 Tavon Priest R.N. 18:25 01/24/17. Critical value relayed to ED by lab. Critical value received by RN. Calcium: 14.1. Critical value read back. ED physician notifed of critical value. --18:25 Yuridia Rose R.N. 18:31 01/24/2017 Started 2 gm of Rocephin (CefTRIAXone Sodium) IVPB in bag #1 50 mL; at 100 mL/hr over 30 minute(s) via site #1; Allergies verified and confirmed 5 rights. IV patency established. IV site checked: no pain, redness, or swelling. IV flushed thoroughly pre- and post-medication administration. Completed per protocol. --18:31 Tavon Priest R.N. 19:35 01/24/2017 Started 500 mg of Zithromax (Azithromycin) IVPB in bag #1 250 mL; at 250 mL/hr over 1 hour(s) via site #1 via dial-a-flow. Allergies verified and confirmed 5 rights. IV patency established. IV site checked: no pain, redness, or swelling. IV flushed thoroughly pre- and post-medication administration. Completed per protocol. --19:35 Tavon Preist R.N. 19:35 01/24/17. ( Pt is actively seizing md notified ativan ordered and given MD aware of vital signs). --19:45 Tavon Priest R.N. 19:36 01/24/2017 Ativan (LORazepam) IVP 1 mg given over 1 minute(s) via site #1. Allergies verified, confirmed 5 rights and sedative warning given to the patient. IV patency established. IV site checked: no pain, redness, or swelling. IV flushed thoroughly pre- and post-medication administration. IVP given by RN. --19:36 Tavon Priest R.N. 19:35 01/24/17. BP: 115/70. HR: 140. RR: 10. O2 saturation: 78%. --19:45 Tavon Priest R.N. ( [facility] MD at bedside). --20:23 Tavon Priest R.N. 20:22 01/24/17. BP: 107/71. HR: 132. RR: 12. O2 saturation: 81%. --20:23 Tavon Priest R.N. 21:26 01/24/17. BP: 105/63. HR: 135. RR: 18. O2 saturation: 70%. Pain level now 0/10. --21:27 Tavon Priest R.N. ( waiting for room). --21:27 Tavon Priest R.N. 19:30 01/24/2017 Rocephin IVPB Discontinued: bag #1 infused upon admission. IV patency established. IV site checked: no pain, redness, or swelling. IV flushed thoroughly. --21:36 Tavon Priest R.N. 21:30 01/24/2017 Zithromax IVPB Discontinued: bag #2 infused upon admission. Total amount infused: 250 mL. IV patency established. IV site checked: no pain, redness, or swelling. IV flushed thoroughly. --21:37 Tavon Priest R.N. DISPOSITION / DISCHARGE Departure time: :Jan 24 2017. Report was given to a nurse via a phone call. Report included patient's care, treatment, medications, reviewed medication reconcilliation, and condition (including any recent changes or anticipated changes). All questions were answered. Report was acknowledged. --21:56 Tavon Priest R.N. 21:55 01/24/17. BP: 98/66. HR: 134. RR: 12. O2 saturation: 78%. Temp: 97.9 F. --21:56 Tavon Priest R.N. Departure time: 2199Jan 24 2017. --22:19 Tavon Priest R.N. Locked/Released at 02/02/2017 13:15 by Tavon Priest R.N.
--- NOTE | 2017-01-24 19:18 | ED ORDER SUMMARY ---
..... Patient: EUGENE BARR OrderSheet [facility] VisitID: [id number] [place] [address] 66y, M Registration Date/Time: 01/24/2017 ORDER SHEET Weight: 0.4 kg (estimated) Allergies: No Known Drug Allergy GENERAL ORDERS: CT Head wo Cont Urgent (16:47 01/24/2017 Rosanna MORRIS) (Ack 17:07 Alondra) (17:15 DBeyer R.N.) Chest 1V Urgent (16:47 01/24/2017 Rosanna MORRIS) (Ack 17:07 Alondra) (17:15 DBeyer R.N.) Fire Extinguisher Repairer (Continuous) (16:47 01/24/2017 Rosanna MORRIS) (17:05 LSullivan R.N.) (17:07 Susanne R.N.) CBC w Diff Urgent (16:48 01/24/2017 Rosanna MORRIS) (Ack 17:07 Alondra) (18:04 TBergley) CMP Urgent (16:48 01/24/2017 Rosanna MORRIS) (Ack 17:07 Alondra) (18:04 TBergley) UA-Culture if indicated Urgent (16:48 01/24/2017 Rosanna MORRIS) (Ack 17:07 Alondra) (17:32 LSullivan R.N.) Pulse oximeter (16:48 01/24/2017 Rosanna MORRIS) (17:05 LSullivan R.N.) (17:07 Susanne R.N.) EKG - ER Stat (16:48 01/24/2017 Rosanna MORRIS) (16:57 TBergley) Oxygen (2 L/min) (NC) (16:48 01/24/2017 Rosanna MORRIS) (17:07 Susanne R.N.) Mane Catheter (17:33 01/24/2017 LSullivan R.N. verbal order read back to Rosanna MORRIS) (17:33 LSullivan R.N.) MEDICATION ORDERS: IV FLUIDS: IV NS : initial bolus 1000 mL (1000 mL/hr), then none - (NOW) (16:47 01/24/2017 Rosanna MORRIS) (17:32 LSullivan R.N.) Rocephin IV 2 gm/50mL (NOW) (18:16 01/24/2017 Rosanna MORRIS) (18:31 Negro R.N.) Zithromax IV 500 mg/250 mL (NOW) (18:16 01/24/2017 Rosanna MORRIS) (19:35 Negro R.N.) Ativan IV 1 mg (NOW) (19:36 01/24/2017 Negro R.N. verbal order read back to Rosanna MORRIS) (19:36 Negro R.N.) ORDER SHEET NOTES: [Electronically signed by Brenda Jimenes MD (10:48 01/28/2017)] [Electronically signed by Tavon Priest R.N. (13:15 02/02/2017)] [Electronically locked/signed by Tavon Priest R.N. (13:15 02/02/2017)]
--- NOTE | 2017-01-24 19:18 | ED NURSING NOTES ---
Clinical Report - Nurses [facility] [place] [address] 01/24/2017 15:36 Patient: EUGENE BARR TRIAGE Triage time 15:41. Chief Complaint: SEIZURES (multiple episodes) and (the last one was "really long, 30 minutes"). --15:49 Elin Maria R.N. 15:49 01/24/17. BP: 111/65. HR: 140. RR: 12. O2 saturation: 97% on non-rebreather at 15 liters/minute. --15:50 Elin Maria R.N. 17:04 01/24/17. Temp: 98.5 F (axillary). --17:05 Elin Maria R.N. ( Unknown weight and height). --13:15 Tavon Priest R.N. Weight: 0.4 kg estimated. Height/Length: 1 inches Estimated. BMI: 640. --13:14 Tavon Priest R.N. Medications Acetaminophen Oral 1,000 mg, 2x a day. --15:44 Elin Maria R.N. Morphine 0.5mg liquid po q6hrs. --15:45 Elin Maria R.N. Tylenol with morphine liquid. --15:47 Elin Maria R.N. Allergies No Known Drug Allergy. --15:44 Elin Maria R.N. History Arrived by EMS. Historian: family. Primary physician (Dr Martines oncologist at [facility], Dr Ellsworth for oncology at [facility]). ( Pt arrived in comatose state, but has been medicated with IV Valium x 2 doses.). This occurred just prior to arrival and today. PAST MEDICAL HX: ( last seizure 25 years ago). --15:49 Elin Maria R.N. PROBLEMS: Leukocytosis. Hypercalcemia. Anemia. Brain tumors. Lung Cancer. GI Bleeding. Constipation. Abdominal Pain. COPD - Chronic Obstructive Pulmonary Disease. Metastatic squamous cell carcinoma. --15:50 Elin Maria R.N. ADDITIONAL SURGERIES: 3 tumors removed from brain. Jaw surgery --bone removed and replaced with bone from lower leg. Lobectomy of lung. --15:50 Elin Maria R.N. Interventions ID band on patient. To room. --15:49 Elin Maria R.N. PHYSICAL ASSESSMENT 15:51 01/24/17. GENERAL / NEURO / PSYCH: Decreased awareness. Calvin Coma Scale: 2- eyes do not open (1); best motor response- none (1). --15:51 Elin Maria R.N. 15:51 01/24/17. HEENT: ( All family at bedside, all agree pt is DNR). --15:51 Elin Maria R.N. NURSING PROGRESS NOTES 15:52 01/24/17. environmental monitoring specialist, pulse oximeter and NIBP monitor placed on patient; cardiac cath tech- Lead II and V1; monitor alarms on. Seizure precautions initiated. Patient identifiers checked. Call light placed in reach. Bed placed in lowest position. Patient ready for evaluation. --15:52 Elin Maria R.N. 15:57 01/24/17. ( Pt orally suctioned for secretions, Fdee menon respirations, unconscious, oral care given.). --15:57 Elin Maria R.N. 16:59 01/24/17. EKG time: (1656 PM). EKG was ordered, performed by a tech and shown to the ED physician. --16:59 Colleen Dowd 16:15 01/24/17. BP: 114/71. HR: 144. RR: 13. O2 saturation: 91% on non-rebreather at 10 liters/minute. --17:10 Elin Maria R.N. 17:00 01/24/17. BP: 112/71. HR: 146. RR: 27. O2 saturation: 100%. Temp: 91 F. --17:11 Elin Maria R.N. Patient transported to CT by stretcher with tech. --17:11 Elin Maria R.N. 15:19 01/24/2017 Site #1 started prior to arrival by EMS via IV in the right antecubital space with an 20g angiocath, with aseptic technique. --17:20 Elin Maria R.N. 17:17 01/24/17. ( Approximately 8 family members found in room, asked if they could stay in the consultation room while we work with the patient, and that 2 visitors at a time is fine.). --17:17 Elin Maria R.N. 17:32 01/24/2017 Started bag #1 1000 mL IV Fluids IV NS (Saline); at 1000 mL/hr over 1 hour(s) via site #1 --17:32 Elin Maria R.N. 14 fr farah catheter placed. Reason for indwelling catheter: retention and patient's decreased level of consciousness. During procedure hand hygiene observed and sterile equipment and aseptic technique used. Return of deshawn-colored urine; attached to bedside drainage bag positioned below the bladder. He tolerated procedure fair ( requested farah to be placed so pt "doesn't pee on himself"). --17:37 Elin Maria R.N. ( Upon entering room, 6 family members in room, when asked to leave, they seemed irritated that they were asked to leave.). --17:38 Elin Maria R.N. 17:41 01/24/17. Care transferred and report given (to Tavon). --17:41 Elin Maria R.N. 15:52. ( Pt arrived with IV bag of NS that EMS started sometime MANAGER NEW PRODUCT, about 300 mls LTC, infusing into RAC well. No swelling.). --17:45 Elin Maria R.N. 18:03. Critical value relayed to ED by lab. Critical value received by RN. WBC: 35.7. Critical value read back. ED physician notifed of critical value. --18:03 Yuridia Rose R.N. 18:06 01/24/17. BP: 133/77. HR: 140. RR: 14. O2 saturation: 91%. --18:08 Tavon Priest R.N. ( First contact by RN with this pt, report from Elin, pt family at bedside pt is no responsive on non-rebreather 12L). --18:08 Tavon Priest R.N. ( family updated on plan of care). --18:08 Tavon Priest R.N. 18:25 01/24/17. Critical value relayed to ED by lab. Critical value received by RN. Calcium: 14.1. Critical value read back. ED physician notifed of critical value. --18:25 Yuridia Rose R.N. 18:31 01/24/2017 Started 2 gm of Rocephin (CefTRIAXone Sodium) IVPB in bag #1 50 mL; at 100 mL/hr over 30 minute(s) via site #1; Allergies verified and confirmed 5 rights. IV patency established. IV site checked: no pain, redness, or swelling. IV flushed thoroughly pre- and post-medication administration. Completed per protocol. --18:31 Tavon Priest R.N. 19:35 01/24/2017 Started 500 mg of Zithromax (Azithromycin) IVPB in bag #1 250 mL; at 250 mL/hr over 1 hour(s) via site #1 via dial-a-flow. Allergies verified and confirmed 5 rights. IV patency established. IV site checked: no pain, redness, or swelling. IV flushed thoroughly pre- and post-medication administration. Completed per protocol. --19:35 Tavon Priest R.N. 19:35 01/24/17. ( Pt is actively seizing md notified ativan ordered and given MD aware of vital signs). --19:45 Tavon Priest R.N. 19:36 01/24/2017 Ativan (LORazepam) IVP 1 mg given over 1 minute(s) via site #1. Allergies verified, confirmed 5 rights and sedative warning given to the patient. IV patency established. IV site checked: no pain, redness, or swelling. IV flushed thoroughly pre- and post-medication administration. IVP given by RN. --19:36 Tavon Priest R.N. 19:35 01/24/17. BP: 115/70. HR: 140. RR: 10. O2 saturation: 78%. --19:45 Tavon Priest R.N. ( [facility] MD at bedside). --20:23 Tavon Priest R.N. 20:22 01/24/17. BP: 107/71. HR: 132. RR: 12. O2 saturation: 81%. --20:23 Tavon Priest R.N. 21:26 01/24/17. BP: 105/63. HR: 135. RR: 18. O2 saturation: 70%. Pain level now 0/10. --21:27 Tavon Priest R.N. ( waiting for room). --21:27 Tavon Priest R.N. 19:30 01/24/2017 Rocephin IVPB Discontinued: bag #1 infused upon admission. IV patency established. IV site checked: no pain, redness, or swelling. IV flushed thoroughly. --21:36 Tavon Priest R.N. 21:30 01/24/2017 Zithromax IVPB Discontinued: bag #2 infused upon admission. Total amount infused: 250 mL. IV patency established. IV site checked: no pain, redness, or swelling. IV flushed thoroughly. --21:37 Tavon Priest R.N. DISPOSITION / DISCHARGE Departure time: :Jan 24 2017. Report was given to a nurse via a phone call. Report included patient's care, treatment, medications, reviewed medication reconcilliation, and condition (including any recent changes or anticipated changes). All questions were answered. Report was acknowledged. --21:56 Tavon Priest R.N. 21:55 01/24/17. BP: 98/66. HR: 134. RR: 12. O2 saturation: 78%. Temp: 97.9 F. --21:56 Tavon Priest R.N. Departure time: 2199Jan 24 2017. --22:19 Tavon Priest R.N. Locked/Released at 02/02/2017 13:15 by Tavon Priest R.N.
--- NOTE | 2017-01-24 23:58 | HISTORY AND PHYSICAL ---
ADMITTED: 01/24/2017 CHIEF COMPLAINT: 1. Seizures and decreased level of consciousness HISTORY OF PRESENT ILLNESS: The patient is an unfortunate 66-year-old white male who developed increased confusion, which his noted this morning. He was not able to be up and walking in his usual fashion. He started to develop seizures early this afternoon. His family called and he was transported here to [facility] Emergency Department. 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 He has had rather complicated course recently with development of multiple pulmonary metastases and intracranial metastases. He had surgical treatment for the intracranial metastases and a partial lobectomy for lung metastases over the last year or so. These operations were not very successful. The intracranial metastases have come back. He has been followed at the [facility] and has undergone some attempts at immunotherapy directed against the tumor. These have not been successful and the tumor has progressively enlarged. He has been rather functional until just today. His family is aware that his condition is significantly worsening and that his survival is quite limited at this point. MEDICAL/SURGICAL HISTORY: Past medical history: Remarkable for the metastatic squamous cell carcinoma as noted above. Recently, the patient was admitted here around with weakness and was found to have a low hematocrit and guaiac-positive stools. This led to diagnosis of a gastric ulcer, which seemed to be related to anti-inflammatory medication use. He has cut down on the anti-inflammatory medications, has been using morphine and Tylenol. He has not really had any specific treatment for the ulcer other than this. He has had no evidence of ongoing GI bleeding. Past surgical history: Remarkable for oral surgery and jaw reconstruction done in 10/2012 for the squamous cell carcinoma. He has subsequently at some point in the last year or so had a partial lobectomy of the lung. He also has had craniotomies for removal of intracranial tumors. He has not had other major operations. MEDICATIONS: Currently include: 1. Tylenol. 2. Liquid morphine unsure of exact dose 3. No other medications. ALLERGIES: 1. NONE. 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 He is a former smoker. He does not drink alcohol or use other drugs. FAMILY HISTORY: Not available. REVIEW OF SYSTEMS: HEENT: Remarkable for a tumor mass extending through the calvarium and causing a lump in the right occipital area. He also has area on the left lateral parietal area with smaller mass. Mouth is quite dry from prior surgery and radiation treatments. Respiratory: Remarkable for gurgling breath sounds, which developed with the seizures. Gastrointestinal: Okay with no vomiting or obvious blood in stools. Genitourinary: Okay. A Mane catheter has been placed. Musculoskeletal: Has been okay. Neurologic: Has been fairly symmetric until today. Since the seizure started patient has been unresponsive. Psychiatric: Has been okay up until now. CODE STATUS: The patient's family has been realizing that he would be a NO CODE at this point. They have opted for comfort care. They have been somewhat undecided about how much additional treatment to proceed with. Specifically, they have not thought about whether they want treatment of pneumonias or seizures or to consider something like dexamethasone to try to reduce tumor size. PHYSICAL EXAMINATION: GENERAL: Shows patient to be a white male, who is fairly thin, who is on nonrebreathing mask. He does have intermittent right facial twitching, has had a number of seizures in the emergency department, treated with lorazepam, which may be contributing to the sedation, decreased responsiveness. VITAL SIGNS: Blood pressure is in the 110/60 range. Pulse is 140 and regular. Oxygen saturation is 78-89% on the nonrebreather mask at 15 L per minute. HEENT: Head shows the posterior occipital soft tumor mass in the right lower occipital area and a smaller soft mass in the left lateral parietal area. Ear canals and tympanic membranes are normal. Pupils are equal and minimally reactive. Mouth shows dry mucosa. NECK: Shows no significant adenopathy. Carotid pulses are normal with no bruits. CHEST: Reveals decreased breath sounds on the right rather diffusely with diffuse scattered rhonchi. There are a few rhonchi on the left. There is no axillary adenopathy. HEART: Reveals a normal S1 and S2 with a grade 1-2/6 systolic murmur. ABDOMEN: Nontender with no organomegaly or mass. Bowel tones are normal. GENITALIA: Show normal circumcised male with a Mane catheter in place. Testes and scrotum are normal. EXTREMITIES: Show no pronounced edema. NEUROLOGIC: Reveals the patient to be basically unresponsive with minimal response to pain stimulation. SKIN: Okay with no areas of obvious breakdown. LAB/IMAGING: Laboratory studies show urinalysis to be normal. White blood cell count is 35,500. There are 91% polys. Hemoglobin is 11.8, hematocrit is 36.7. Sodium is 140, potassium 3.4, chloride 100, CO2 30, glucose 187, BUN 22, creatinine 1.6, calcium is 14. Alkaline phosphatase is 217, SGOT is 20, SGPT is 14. Chest x-ray: Shows diffuse infiltrate on the right with effusion. Both lung bowman show multiple mets, which are enlarging compared to previous x-rays. Brain CT: Scan shows a 4 x 5.5 cm mass in the right posterior parietal occipital area, and a 2.5 cm mass in the left parietal area. The large one has ordered through the skull. IMPRESSION: 1. The patient is presenting with onset of seizures, which most likely is related to the brain metastases that are enlarging. He also has a significantly elevated calcium level, which could be contributing to the seizures. 2. He also presents with underlying diffuse right-sided pneumonia, which may be possibly be related to aspiration associated with the seizures. 3. He has significant hypercalcemia. 4. He has the underlying metastatic squamous cell carcinoma to lungs and brain with no response to very aggressive therapy and basically is at end of life state. PLAN: I discussed the patient's situation with his and extended family at length. We were discussing how aggressive to be treating his problems of pneumonia, seizures and elevated calcium. Given the underlying progressive nature of his tumor, I explained that we could possibly treat these things and make him a little bit better. Whether we could make him alert enough to talk and be able to walk is doubtful and most likely efforts would be futile in the long run with condition deteriorating again within several days. Considering this, the family is opting for strict comfort care. He will have seizures treated with lorazepam. He will not continue with antibiotics for the pneumonia. He will have MS available for restlessness and shortness of breath. He will be continued on supplemental oxygen. He will be continued on low-dose IV fluids. Prognosis is poor with demise likely to occur within a 48-hour period.
[2017-01-25] MEDS ORDERED: MORPHINE PO (00:01)
--- NOTE | 2017-01-25 08:01 | Discharge Summary ---
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 Hayes: The patient is an unfortunate 66-year-old white male who developed increased confusion, which his noted this morning. He was not able to be up and walking in his usual fashion. He started to develop seizures early this afternoon. His family called and he was transported here to [facility] Emergency Department. 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 He has had rather complicated course recently with development of multiple pulmonary metastases and intracranial metastases. He had surgical treatment for the intracranial metastases and a partial lobectomy for lung metastases over the last year or so. These operations were not very successful. The intracranial metastases have come back. He has been followed at the [facility] and has undergone some attempts at immunotherapy directed against the tumor. These have not been successful and the tumor has progressively enlarged. He has been rather functional until just today. His family is aware that his condition is significantly worsening and that his survival is quite limited at this point. Hospital Course The admitting physician had a long discussion with the patient's and extended family about the patient's poor prognosis, as he was ill upon admission. At that time, they had decided to avoid aggressive measures and elective to change his goals of care to comfort only. He was given fluids, as well as medications for discomfort and seizures. I was called at 7:45am that the patient had . This was confirmed on exam. was at bedside, and was appreciative of our help. General Appearance Patient without pulse, heart sounds, lung sounds, or bowel sounds. Discharge Instructions/Meds None, as patient is . E&M Codes Discharge: Inpt <30 min spent/[id number]
--- NOTE | 2017-02-02 13:16 | ED MAR SUMMARY ---
..... Medication Administration Record [facility] [address] [place] [place] [address] Patient: EUGENE BARR Visit ID: [id number] 66y, M Weight: 0.4 kg Height/Length: 1 in BMI: 640 ALLERGIES: No Known Drug Allergy Start 17:32 01/24/2017 Elin Maria R.N. Medication Administered: IV NS (SALINE), Dose: IV Fluids over 1 hour(s), Rate: 1000 mL/hr, Dispensed: 1000 mL bag, Site: #1 right AC. Medication Ordered: IV NS : initial bolus 1000 mL (1000 mL/hr), then none - (NOW). Start 18:31 01/24/2017 Tavon Priest R.N., Stop 19:30 01/24/2017 Tavon Priest R.N. Medication Administered: ROCEPHIN [IVPB] (CEFTRIAXONE SODIUM), Dose: 2 gm IVPB over 30 minute(s), Rate: 100 mL/hr, Dispensed: 50 mL bag, Site: #1 right AC. Medication Ordered: Rocephin IV 2 gm/50mL (NOW). Start 19:35 01/24/2017 Tavon Priest RJuanN., Stop 21:30 01/24/2017 Tavon Priest R.N. Medication Administered: ZITHROMAX [IVPB] (AZITHROMYCIN), Dose: 500 mg IVPB over 1 hour(s), Rate: 250 mL/hr, Dispensed: 250 mL bag, Site: #1 right AC. Medication Ordered: Zithromax IV 500 mg/250 mL (NOW). Given 19:36 01/24/2017 Tavon Priest R.NJuan Medication Administered: ATIVAN [IVP] (LORAZEPAM), Dose: 1 mg IVP over 1 minute(s), Site: #1 right AC. Medication Ordered: Ativan IV 1 mg (NOW).
--- NOTE | 2017-02-02 13:16 | ED DISCHARGE INSTRUCTIONS ---
Patient: EUGENE BARR General Instructions [facility] VisitID: [id number] [address] [place] [address] 66y, M Registration Date/Time: 01/24/2017 New onset generalized seizure (associated with intracranial neoplasm). No history of epilepsy. Bacterial pneumonia with hypoxemia, respiratory failure and sepsis. Vital signs recorded and reviewed; empiric antibiotics given in the ED. Bone cancer \, brain cancer \, lung cancer. Metastases present. Received chemotherapy in past and received radiation therapy in past. Hypoxia. (Electronically signed by Brenda Jimenes MD 01/28/2017 10:48)
--- NOTE | 2017-02-02 13:16 | ED DISCHARGE INSTRUCTIONS ---
Patient: EUGENE BARR General Instructions [facility] VisitID: [id number] [address] [place] [address] 66y, M Registration Date/Time: 01/24/2017 New onset generalized seizure (associated with intracranial neoplasm). No history of epilepsy. Bacterial pneumonia with hypoxemia, respiratory failure and sepsis. Vital signs recorded and reviewed; empiric antibiotics given in the ED. Bone cancer \, brain cancer \, lung cancer. Metastases present. Received chemotherapy in past and received radiation therapy in past. Hypoxia. (Electronically signed by Brenda Jimenes MD 01/28/2017 10:48)
--- NOTE | 2017-02-02 13:16 | ED MED RECONCILIATION SUMMARY ---
Patient: EUGENE BARR Medication Reconciliation Report [facility] VisitID: [id number] [address] [place] [address] 66y, M Registration Date/Time: 01/24/2017 Weight: 0.4 kg Height/Length: 1 in. BMI: 640.0 ALLERGIES: No Known Drug Allergy The patient's Home Medications are listed below: THE FOLLOWING MEDICATIONS NEED TO BE RECONCILED: Acetaminophen Oral 1,000 mg, 2x a day Morphine 0.5mg liquid po q6hrs Tylenol with morphine liquid The source(s) of the original Home Medication information: Not obtained. The following Medications were given to the patient in the Emergency Department: IV NS IV Fluids bolus 0, then 1000 mL/hr, administered: 01/24/2017 5:32:00 PM Rocephin [IVPB] IVPB bolus 0, then 2 gm 100 mL/hr, administered: 01/24/2017 6:31:00 PM Zithromax [IVPB] IVPB bolus 0, then 500 mg 250 mL/hr, administered: 01/24/2017 7:35:00 PM Ativan [IVP] IVP 1 mg, administered: 01/24/2017 7:36:00 PM The following Medications were prescribed to the patient: None.
--- NOTE | 2017-02-02 13:16 | ED MAR SUMMARY ---
..... Medication Administration Record [facility] [address] [place] [address] Patient: EUGENE BARR Visit ID: [id number] 66y, M Weight: 0.4 kg Height/Length: 1 in BMI: 640 ALLERGIES: No Known Drug Allergy Start 17:32 01/24/2017 Elin Maria R.N. Medication Administered: IV NS (SALINE), Dose: IV Fluids over 1 hour(s), Rate: 1000 mL/hr, Dispensed: 1000 mL bag, Site: #1 right AC. Medication Ordered: IV NS : initial bolus 1000 mL (1000 mL/hr), then none - (NOW). Start 18:31 01/24/2017 Tavon Priest R.N., Stop 19:30 01/24/2017 Tavon Priest R.N. Medication Administered: ROCEPHIN [IVPB] (CEFTRIAXONE SODIUM), Dose: 2 gm IVPB over 30 minute(s), Rate: 100 mL/hr, Dispensed: 50 mL bag, Site: #1 right AC. Medication Ordered: Rocephin IV 2 gm/50mL (NOW). Start 19:35 01/24/2017 Tavon Priest RJuanN., Stop 21:30 01/24/2017 Tavon Priest R.N. Medication Administered: ZITHROMAX [IVPB] (AZITHROMYCIN), Dose: 500 mg IVPB over 1 hour(s), Rate: 250 mL/hr, Dispensed: 250 mL bag, Site: #1 right AC. Medication Ordered: Zithromax IV 500 mg/250 mL (NOW). Given 19:36 01/24/2017 Tavon Priest R.NJuan Medication Administered: ATIVAN [IVP] (LORAZEPAM), Dose: 1 mg IVP over 1 minute(s), Site: #1 right AC. Medication Ordered: Ativan IV 1 mg (NOW).
--- NOTE | 2017-02-02 13:16 | ED MED RECONCILIATION SUMMARY ---
Patient: EUGENE BARR Medication Reconciliation Report [facility] VisitID: [id number] [address] [place] [address] 66y, M Registration Date/Time: 01/24/2017 Weight: 0.4 kg Height/Length: 1 in. BMI: 640.0 ALLERGIES: No Known Drug Allergy The patient's Home Medications are listed below: THE FOLLOWING MEDICATIONS NEED TO BE RECONCILED: Acetaminophen Oral 1,000 mg, 2x a day Morphine 0.5mg liquid po q6hrs Tylenol with morphine liquid The source(s) of the original Home Medication information: Not obtained. The following Medications were given to the patient in the Emergency Department: IV NS IV Fluids bolus 0, then 1000 mL/hr, administered: 01/24/2017 5:32:00 PM Rocephin [IVPB] IVPB bolus 0, then 2 gm 100 mL/hr, administered: 01/24/2017 6:31:00 PM Zithromax [IVPB] IVPB bolus 0, then 500 mg 250 mL/hr, administered: 01/24/2017 7:35:00 PM Ativan [IVP] IVP 1 mg, administered: 01/24/2017 7:36:00 PM The following Medications were prescribed to the patient: None.
== END 2017-01-25 08:00 | disposition expired | DRG 54 ==
LOC: ED SRH 15:34 → TRANS SRH 19:46 → ACUTE2 SRH 22:00
PROVIDERS: ADMIT Emergency Medicine
DX: C79.31 Secondary malignant neoplasm of brain (principal); E83.52 Hypercalcemia; G40.89 Other seizures; J69.0 Pneumonitis due to inhalation of food and vomit; C78.02 Secondary malignant neoplasm of left lung; C78.01 Secondary malignant neoplasm of right lung; C79.51 Secondary malignant neoplasm of bone; R09.02 Hypoxemia; Z85.819 Personal history of malignant neoplasm of unspecified site of lip, oral cavity, and pharynx; G94 Other disorders of brain in diseases classified elsewhere; Z92.3 Personal history of irradiation; Z66 Do not resuscitate